=== PATIENT | male | born 1970 | race Caucasian/White ===

== ENCOUNTER → 2019-12-27 08:48 | Outpatient (BNVA) | payer OTHER, SELFPAY | PROVIDERS: Family Provider Emergency Medicine Emergency Medical Services; PCP Emergency Medicine Emergency Medical Services; Visit Provider Counselor Professional | DX: F43.12 Post-traumatic stress disorder, chronic (principal); F41.1 Generalized anxiety disorder; F33.2 Major depressive disorder, recurrent severe without psychotic features | CPT/HCPCS: 90834 ==

== ENCOUNTER 2020-01-05 06:54 | Day surgery (SDC) | payer OTHER, SELFPAY ==
[2020-01-04 09:57] VITALS: BMI 35.5
[2020-01-05 08:03] VITALS: BMI 35.5
[2020-01-05 08:09] VITALS: BP 159/99; PULSE 70; RESP 16; TEMP 36.3; O2SAT 95
[2020-01-05] MEDS: sodium chloride 0.9% 1,000 ML 30 ML (08:28)
--- NOTE | 2020-01-05 08:39 | W.PM.OPSUD ---
Surgery/Procedure H&P Update DATE OF PROCEDURE: January 05, 2020 DATE H&P PERFORMED: 12/30/19 H&P UPDATE INFORMATION: I have reviewed H&P completed within last 30 days, I have examined patient prior to procedure and No changes to prior documentation PREOP DIAGNOSIS: Dysphagia PRIMARY INDICATION FOR PROCEDURE: The same PLANNED PROCEDURE: Operation Date: 01/05/20 08:15 Proposed Procedures p EGD(Not Applicable) - Moe Torres MD
--- NOTE | 2020-01-05 08:45 | ANES.PREANE2 ---
Pre-Anesthetic Assessment Pre-Anesthetic Assessment: Height/Weight: Height 1.96 m Weight 136.078 kg Temp Pulse Resp BP Pulse Ox 97.4 F L 70 16 159/99 95 01/05/20 08:09 01/05/20 08:09 01/05/20 08:09 01/05/20 08:09 01/05/20 08:09 Preop Diagnosis: Dysphagia Proposed Procedure: Operation Date: 01/05/20 08:15 Proposed Procedures p EGD(Not Applicable) - Moe Torres MD Familial anesthetic complications: denies Was Beta Gonzalo taken within 24 hours: N/A Social: Social History: Tobacco (1/2 ppd) Exam: Pre-Anes Outpt Exam: alert, oriented x 3, clear to auscultation bilaterally and regular rate & rhythm Airway: Submandibular: WNL Cervical ROM: WNL MP: 2 Dentition: Full History/ROS: No significant history except as noted Pulmonary: Pulmonary: Sleep apnea (does not use cpap/bipap) CV/HEM: CV/HEM: HTN : : None reported Hepatic: Hepatic: None reported GI: GI: GERD Metabolic: Metabolic: Hyperlipidemia and Morbid obesity Musc/skel: Musc/skel: None reported Neuropsych: Neuropsych: Anxiety, Bipolar and Depression Comments: PTSD Anesthetic Plan: ASA status: 2 Anesthesia: Anesthesia Evaluation and MAC Risk of > 500 ml blood loss (7ml/kg in children): No PFSH Anesthesia PFSH: Social History Smoking and tobacco status: former smoker Quit status (tobacco): has quit using tobacco Second hand smoke exposure: No Alcohol intake: current Alcohol intake frequency: holidays/special occasions only Adopted: No Caregiver/support person: No Lives independently: No Household members: none Marital status: Current gender identity: Male Data Anesthesia Cardiac Studies: No Data to Display
[2020-01-05 09:01] VITALS: BP 136/90; PULSE 86; RESP 16; TEMP 36.2; O2SAT 99
[2020-01-05 09:10] VITALS: BP 125/88; PULSE 74; RESP 18; O2SAT 96
--- NOTE | 2020-01-05 09:20 | ANE.PACU2 ---
 Inpatient post-anesthesia follow up: Airway intact: Yes Vital signs: Temperature 97.2 F Pulse Rate 74 Respiratory Rate 18 Blood Pressure 125/88 Pulse Oximetry 96 Oxygen Delivery Me thod Room Air Oxygen Flow Rate 2 Fraction of Inspir ed Oxygen Hydration adequate: Yes Nausea and vomiting: No Mental status: Baseline
[2020-01-06 05:57] LABS: H. Pylori / CLO Test Negative
== END 2020-01-05 09:18 | disposition home or self-care (01) ==
PROVIDERS: Family Provider Emergency Medicine Emergency Medical Services; PCP Emergency Medicine Emergency Medical Services; Visit Provider Surgery
PROC: 0DJ08ZZ Inspection of Upper Intestinal Tract, Via Natural or Artificial Opening Endoscopic (ICD-10-PCS; CPT 43235; principal; 2020-01-05 08:15)
DX: R13.10 Dysphagia, unspecified (principal); K21.0 Gastro-esophageal reflux disease with esophagitis; K29.70 Gastritis, unspecified, without bleeding; K29.80 Duodenitis without bleeding; I10 Essential (primary) hypertension; F17.210 Nicotine dependence, cigarettes, uncomplicated; K21.9 Gastro-esophageal reflux disease without esophagitis; E78.5 Hyperlipidemia, unspecified; E66.01 Morbid (severe) obesity due to excess calories; Z68.35 Body mass index [BMI] 35.0-35.9, adult
CPT/HCPCS: 12345; 43239; 87077; J7030

== ENCOUNTER → 2020-01-17 10:51 | Outpatient (BNVA) | payer OTHER, SELFPAY | PROVIDERS: Family Provider Emergency Medicine Emergency Medical Services; PCP Emergency Medicine Emergency Medical Services; Visit Provider Counselor Professional | DX: F43.12 Post-traumatic stress disorder, chronic (principal); F41.1 Generalized anxiety disorder; F33.2 Major depressive disorder, recurrent severe without psychotic features | CPT/HCPCS: 90834 ==

== ENCOUNTER 2020-01-20 10:42 | Outpatient (CLI) | payer OTHER, SELFPAY ==
--- NOTE | 2020-01-20 10:52 | FL_ITS ---
WS: [id number] FL barium swallow modifd [id number] REASON FOR EXAM: Other dysphagia FLUOROSCOPY TIME: 3.2 minutes FINDINGS: Modified barium swallow for speech pathologist. Fluoroscopy was performed please see speech pathology diagnosis. There did appear to be some retention of barium in the vallecula area. FL/FL barium swallow modifd [id number] IMPRESSION: Modified barium swallow performed for speech pathology.
== END 2020-01-20 10:43 | disposition home or self-care (01) ==
PROVIDERS: Family Provider Emergency Medicine Emergency Medical Services; PCP Emergency Medicine Emergency Medical Services; Visit Provider Surgery
DX: R13.10 Dysphagia, unspecified (principal)
CPT/HCPCS: 74230; 92611

== ENCOUNTER → 2020-01-25 09:57 | Outpatient (BNVA) | payer OTHER, SELFPAY | PROVIDERS: Family Provider Emergency Medicine Emergency Medical Services; PCP Emergency Medicine Emergency Medical Services; Visit Provider Otolaryngology | DX: R13.10 Dysphagia, unspecified (principal); K21.9 Gastro-esophageal reflux disease without esophagitis; K21.0 Gastro-esophageal reflux disease with esophagitis; J34.2 Deviated nasal septum; F17.210 Nicotine dependence, cigarettes, uncomplicated | CPT/HCPCS: 31575; 99214 ==

== ENCOUNTER → 2020-01-31 08:05 | Outpatient (BNVA) | payer OTHER, SELFPAY | PROVIDERS: Family Provider Emergency Medicine Emergency Medical Services; PCP Emergency Medicine Emergency Medical Services; Visit Provider Counselor Professional | DX: F31.9 Bipolar disorder, unspecified (principal); F43.12 Post-traumatic stress disorder, chronic | CPT/HCPCS: 90834 ==

== ENCOUNTER → 2020-02-07 09:39 | Outpatient (BNVA) | payer OTHER, SELFPAY | PROVIDERS: Family Provider Emergency Medicine Emergency Medical Services; PCP Emergency Medicine Emergency Medical Services; Visit Provider Counselor Professional | DX: F31.9 Bipolar disorder, unspecified (principal); F43.12 Post-traumatic stress disorder, chronic | CPT/HCPCS: 90834 ==

== ENCOUNTER → 2020-02-21 07:48 | Outpatient (BNVA) | payer OTHER, SELFPAY | PROVIDERS: Family Provider Emergency Medicine Emergency Medical Services; PCP Emergency Medicine Emergency Medical Services; Visit Provider Counselor Professional | DX: F31.9 Bipolar disorder, unspecified (principal); F43.12 Post-traumatic stress disorder, chronic | CPT/HCPCS: 90834 ==

== ENCOUNTER → 2020-02-29 08:07 | Outpatient (BNVA) | payer OTHER, SELFPAY | PROVIDERS: Family Provider Emergency Medicine Emergency Medical Services; PCP Emergency Medicine Emergency Medical Services; Visit Provider Counselor Professional | DX: F31.9 Bipolar disorder, unspecified (principal); F43.12 Post-traumatic stress disorder, chronic | CPT/HCPCS: 90834 ==

== ENCOUNTER → 2020-03-07 08:04 | Outpatient (BNVA) | payer OTHER, SELFPAY | PROVIDERS: Family Provider Emergency Medicine Emergency Medical Services; PCP Emergency Medicine Emergency Medical Services; Visit Provider Counselor Professional | DX: F31.9 Bipolar disorder, unspecified (principal); F43.12 Post-traumatic stress disorder, chronic | CPT/HCPCS: 90834 ==

== ENCOUNTER → 2020-03-20 08:03 | Outpatient (BNVA) | payer OTHER, SELFPAY | PROVIDERS: Family Provider Emergency Medicine Emergency Medical Services; PCP Emergency Medicine Emergency Medical Services; Visit Provider Counselor Professional | DX: F31.9 Bipolar disorder, unspecified (principal); F43.12 Post-traumatic stress disorder, chronic | CPT/HCPCS: 90834 ==

== ENCOUNTER → 2020-03-28 08:06 | Outpatient (BNVA) | payer OTHER, SELFPAY | PROVIDERS: Family Provider Emergency Medicine Emergency Medical Services; PCP Emergency Medicine Emergency Medical Services; Visit Provider Counselor Professional | DX: F31.9 Bipolar disorder, unspecified (principal); F43.12 Post-traumatic stress disorder, chronic | CPT/HCPCS: 90832 ==

== ENCOUNTER → 2020-04-04 08:41 | Outpatient (BNVA) | payer OTHER, SELFPAY | PROVIDERS: Family Provider Emergency Medicine Emergency Medical Services; PCP Emergency Medicine Emergency Medical Services; Referring Provider Emergency Medicine Emergency Medical Services; Visit Provider Anesthesiology Pain Medicine | DX: G89.29 Other chronic pain (principal); M54.5 Low back pain; M54.9 Dorsalgia, unspecified; M54.2 Cervicalgia; R68.84 Jaw pain; F43.10 Post-traumatic stress disorder, unspecified; Z79.899 Other long term (current) drug therapy | CPT/HCPCS: 99203 ==

== ENCOUNTER → 2020-04-05 08:06 | Outpatient (BNVA) | payer OTHER, SELFPAY | PROVIDERS: Family Provider Emergency Medicine Emergency Medical Services; PCP Emergency Medicine Emergency Medical Services; Visit Provider Counselor Professional | DX: M54.9 Dorsalgia, unspecified (principal); R68.84 Jaw pain; F43.10 Post-traumatic stress disorder, unspecified | CPT/HCPCS: 64510; J1100; J2001; J3490 ==

== ENCOUNTER → 2020-04-11 07:58 | Outpatient (BNVA) | payer OTHER, SELFPAY | PROVIDERS: Family Provider Emergency Medicine Emergency Medical Services; PCP Emergency Medicine Emergency Medical Services; Visit Provider Counselor Professional | DX: F43.10 Post-traumatic stress disorder, unspecified (principal) | CPT/HCPCS: 90834 ==

== ENCOUNTER → 2020-04-19 12:30 | Outpatient (BNVA) | payer OTHER, SELFPAY | PROVIDERS: Family Provider Emergency Medicine Emergency Medical Services; PCP Emergency Medicine Emergency Medical Services; Visit Provider Anesthesiology Pain Medicine | DX: M54.2 Cervicalgia (principal); F43.10 Post-traumatic stress disorder, unspecified | CPT/HCPCS: 64510; J1100; J2001; J3490 ==

== ENCOUNTER → 2020-04-20 07:57 | Outpatient (BNVA) | payer OTHER, SELFPAY | PROVIDERS: Family Provider Emergency Medicine Emergency Medical Services; PCP Emergency Medicine Emergency Medical Services; Visit Provider Counselor Professional | DX: F43.10 Post-traumatic stress disorder, unspecified (principal) | CPT/HCPCS: 90834 ==

== ENCOUNTER → 2020-04-26 07:54 | Outpatient (BNVA) | payer OTHER, SELFPAY | PROVIDERS: Family Provider Emergency Medicine Emergency Medical Services; PCP Emergency Medicine Emergency Medical Services; Visit Provider Counselor Professional | DX: F43.10 Post-traumatic stress disorder, unspecified (principal) | CPT/HCPCS: 90834 ==

== ENCOUNTER → 2020-05-03 07:30 | Outpatient (BNVA) | payer OTHER, SELFPAY | PROVIDERS: Family Provider Emergency Medicine Emergency Medical Services; PCP Emergency Medicine Emergency Medical Services; Visit Provider Counselor Professional | DX: F43.10 Post-traumatic stress disorder, unspecified (principal); F31.12 Bipolar disorder, current episode manic without psychotic features, moderate | CPT/HCPCS: 90834 ==

== ENCOUNTER → 2020-05-09 08:09 | Outpatient (BNVA) | payer OTHER, SELFPAY | PROVIDERS: Family Provider Emergency Medicine Emergency Medical Services; PCP Emergency Medicine Emergency Medical Services; Visit Provider Counselor Professional | DX: F43.10 Post-traumatic stress disorder, unspecified (principal); F31.12 Bipolar disorder, current episode manic without psychotic features, moderate | CPT/HCPCS: 90834 ==

== ENCOUNTER → 2020-05-15 08:08 | Outpatient (BNVA) | payer OTHER, SELFPAY | PROVIDERS: Family Provider Emergency Medicine Emergency Medical Services; PCP Emergency Medicine Emergency Medical Services; Visit Provider Counselor Professional | DX: F43.10 Post-traumatic stress disorder, unspecified (principal); F31.12 Bipolar disorder, current episode manic without psychotic features, moderate | CPT/HCPCS: 90834 ==

== ENCOUNTER → 2020-05-29 07:56 | Outpatient (BNVA) | payer OTHER, MEDICARE, SELFPAY | PROVIDERS: Family Provider Emergency Medicine Emergency Medical Services; PCP Emergency Medicine Emergency Medical Services; Visit Provider Counselor Professional | DX: F43.10 Post-traumatic stress disorder, unspecified (principal); F31.12 Bipolar disorder, current episode manic without psychotic features, moderate | CPT/HCPCS: 90834 ==

== ENCOUNTER → 2020-06-01 14:31 | Outpatient (BNVA) | payer OTHER, SELFPAY | PROVIDERS: Family Provider Emergency Medicine Emergency Medical Services; PCP Emergency Medicine Emergency Medical Services; Visit Provider Psychiatry & Neurology Psychiatry | DX: F43.10 Post-traumatic stress disorder, unspecified (principal); F31.9 Bipolar disorder, unspecified | CPT/HCPCS: 99204 ==

== ENCOUNTER → 2020-06-06 08:38 | Outpatient (BNVA) | payer OTHER, SELFPAY | PROVIDERS: Family Provider Emergency Medicine Emergency Medical Services; PCP Emergency Medicine Emergency Medical Services; Visit Provider Counselor Professional | DX: F31.9 Bipolar disorder, unspecified (principal); F43.10 Post-traumatic stress disorder, unspecified | CPT/HCPCS: 90834 ==

== ENCOUNTER → 2020-06-20 08:10 | Outpatient (BNVA) | payer OTHER, SELFPAY | PROVIDERS: Family Provider Emergency Medicine Emergency Medical Services; PCP Emergency Medicine Emergency Medical Services; Visit Provider Counselor Professional | DX: F31.9 Bipolar disorder, unspecified (principal); F43.10 Post-traumatic stress disorder, unspecified | CPT/HCPCS: 90834 ==

== ENCOUNTER → 2020-06-26 08:01 | Outpatient (BNVA) | payer OTHER, SELFPAY | PROVIDERS: Family Provider Emergency Medicine Emergency Medical Services; PCP Emergency Medicine Emergency Medical Services; Visit Provider Psychiatry & Neurology Psychiatry | DX: F31.9 Bipolar disorder, unspecified (principal); F43.10 Post-traumatic stress disorder, unspecified | CPT/HCPCS: 99213 ==

== ENCOUNTER → 2020-06-27 08:19 | Outpatient (BNVA) | payer OTHER, SELFPAY | PROVIDERS: Family Provider Emergency Medicine Emergency Medical Services; PCP Emergency Medicine Emergency Medical Services; Visit Provider Counselor Professional | DX: F31.9 Bipolar disorder, unspecified (principal); F43.10 Post-traumatic stress disorder, unspecified | CPT/HCPCS: 90834 ==

== ENCOUNTER → 2020-07-12 08:29 | Outpatient (BNVA) | payer OTHER, SELFPAY | PROVIDERS: Family Provider Emergency Medicine Emergency Medical Services; PCP Emergency Medicine Emergency Medical Services; Visit Provider Counselor Professional | DX: F31.9 Bipolar disorder, unspecified (principal); F43.10 Post-traumatic stress disorder, unspecified | CPT/HCPCS: 90834 ==

== ENCOUNTER → 2020-07-31 08:19 | Outpatient (BNVA) | payer OTHER, SELFPAY | PROVIDERS: Family Provider Emergency Medicine Emergency Medical Services; PCP Emergency Medicine Emergency Medical Services; Visit Provider Counselor Professional | DX: F31.9 Bipolar disorder, unspecified (principal); F43.10 Post-traumatic stress disorder, unspecified | CPT/HCPCS: 90834 ==

== ENCOUNTER → 2020-08-08 08:17 | Outpatient (BNVA) | payer OTHER, SELFPAY | PROVIDERS: Family Provider Emergency Medicine Emergency Medical Services; PCP Emergency Medicine Emergency Medical Services; Visit Provider Psychiatry & Neurology Psychiatry | DX: F31.9 Bipolar disorder, unspecified (principal); F43.10 Post-traumatic stress disorder, unspecified | CPT/HCPCS: 99213 ==

== ENCOUNTER → 2020-08-14 08:33 | Outpatient (BNVA) | payer OTHER, SELFPAY | PROVIDERS: Family Provider Emergency Medicine Emergency Medical Services; PCP Emergency Medicine Emergency Medical Services; Visit Provider Counselor Professional | DX: F31.9 Bipolar disorder, unspecified (principal); F43.12 Post-traumatic stress disorder, chronic | CPT/HCPCS: 90834 ==

== ENCOUNTER → 2020-08-29 07:50 | Outpatient (BNVA) | payer OTHER, SELFPAY | PROVIDERS: Family Provider Emergency Medicine Emergency Medical Services; PCP Emergency Medicine Emergency Medical Services; Visit Provider Counselor Professional | DX: F31.9 Bipolar disorder, unspecified (principal); F43.12 Post-traumatic stress disorder, chronic | CPT/HCPCS: 90834 ==

== ENCOUNTER → 2020-09-05 08:04 | Outpatient (BNVA) | payer OTHER, SELFPAY | PROVIDERS: Family Provider Emergency Medicine Emergency Medical Services; PCP Emergency Medicine Emergency Medical Services; Visit Provider Counselor Professional | DX: F31.9 Bipolar disorder, unspecified (principal); F43.12 Post-traumatic stress disorder, chronic | CPT/HCPCS: 90834 ==

== ENCOUNTER → 2020-09-19 08:12 | Outpatient (BNVA) | payer OTHER, SELFPAY | PROVIDERS: Family Provider Emergency Medicine Emergency Medical Services; PCP Emergency Medicine Emergency Medical Services; Visit Provider Counselor Professional | DX: F31.9 Bipolar disorder, unspecified (principal); F43.12 Post-traumatic stress disorder, chronic | CPT/HCPCS: 90834 ==

== ENCOUNTER → 2020-10-02 08:13 | Outpatient (BNVA) | payer OTHER, SELFPAY | PROVIDERS: Family Provider Emergency Medicine Emergency Medical Services; PCP Emergency Medicine Emergency Medical Services; Visit Provider Counselor Professional | DX: F31.9 Bipolar disorder, unspecified (principal); F41.1 Generalized anxiety disorder; F43.12 Post-traumatic stress disorder, chronic | CPT/HCPCS: 90834 ==

== ENCOUNTER 2020-10-10 08:56 | Outpatient (CLI) | payer OTHER, SELFPAY ==
--- NOTE | 2020-10-10 09:06 | CT_ITS ---
WS: [id number] CT CHEST TECHNIQUE: Contrast enhanced CT of the chest with coronal and sagittal reformatted images. CLINICAL INFORMATION: POSSIBLE MASS VERSES PULMONARY NODULE COMPARISON: None. DLP: 1087.[address] scans at [facility] use at least one of these dose optimization techniques: automat ed exposure control; mA and/or kV adjustment per patient size (includes targeted exams where dose is matched to clinical indication); or iterative reconstruction. FINDINGS: Mild chronic emphysematous changes. No acute pulmonary infiltrates. No focal consolidation or pleural fluid. Irregular subpleural nodule left lower lobe measuring 1.5 x 1.7 x 1.0 CM. Recommend further e valuation with PET/CT. A few tiny adjacent tiny pulmonary and subpleural nodules in the left lower lo be. Additional noncalcified 5.2 mm pulmonary nodule in the super segment of the right lower lobe adjacent to the fissure posteriorly. Normal caliber thoracic aorta. No mediastinal or hilar lymphadenopathy. No axillary lymphadenopathy. Adrenal glands are normal. Diffuse fatty infiltration liver. Low-attenuation lesion in the dome the l iver likely hepatic cyst measuring 1.[address]/CT chest w con* [id number] IMPRESSION: 1. Irregular subpleural pulmonary nodule in the left lower lobe measuring1.5 x 1.7 x 1.0 CM. Neoplasm is not excluded. Recommend further evaluation with PET/ CT 2. A few adjacent tiny satellite nodules in the left lower lobe. 3. Noncalcified 5 mm nodule in the super segment right lower lobe adjacent to the fissure. Recommend 6 month follow-up. 4. No mediastinal or hilar lymphadenopathy. 5. Diffuse fatty infiltration of the liver with low-attenuation lesion in the dome likely hepatic cyst measuring 1.7 CM.
[2020-10-10] MEDS: iohexol 300 mg/mL 100 mL Btl IV (09:30)
== END 2020-10-10 08:57 | disposition home or self-care (01) ==
LOC: RADWPI 09:01
PROVIDERS: PCP Emergency Medicine Emergency Medical Services; Visit Provider Emergency Medicine Emergency Medical Services
DX: R91.8 Other nonspecific abnormal finding of lung field (principal); R91.1 Solitary pulmonary nodule; K76.0 Fatty (change of) liver, not elsewhere classified
CPT/HCPCS: 71260; Q9967

== ENCOUNTER → 2020-10-16 07:58 | Outpatient (BNVA) | payer OTHER, SELFPAY | PROVIDERS: PCP Emergency Medicine Emergency Medical Services; Visit Provider Counselor Professional | DX: F31.9 Bipolar disorder, unspecified (principal); F43.12 Post-traumatic stress disorder, chronic | CPT/HCPCS: 90834 ==

== ENCOUNTER → 2020-10-31 07:59 | Outpatient (BNVA) | payer OTHER, SELFPAY | PROVIDERS: PCP Emergency Medicine Emergency Medical Services; Visit Provider Counselor Professional | DX: F43.12 Post-traumatic stress disorder, chronic (principal); F31.9 Bipolar disorder, unspecified | CPT/HCPCS: 90834 ==

== ENCOUNTER → 2020-11-13 08:09 | Outpatient (BNVA) | payer OTHER, SELFPAY | PROVIDERS: PCP Emergency Medicine Emergency Medical Services; Visit Provider Counselor Professional | DX: F43.12 Post-traumatic stress disorder, chronic (principal); F31.9 Bipolar disorder, unspecified; F41.1 Generalized anxiety disorder; F33.2 Major depressive disorder, recurrent severe without psychotic features | CPT/HCPCS: 90834 ==

== ENCOUNTER 2020-11-27 08:26 | Outpatient (CLI) | payer OTHER, SELFPAY ==
[2020-11-27 09:40] VITALS: BMI 35.5
--- NOTE | 2020-11-27 09:41 | NMCV_ITS ---
NM cuong perf SPECT r/s* [id number] HarryAdriano eatonick Age: 50 Gender: M : 1970 Exam Date: 11/27/2020 11:04 Ordering Phys: Deonna Medina MD ([email or web address]) Technologist: KAE Keys Exam Location: [facility] Indications: CHEST PAIN STRESS TEST Please see separate stress test report in [facility] for full findings IMAGE PROTOCOL Rest/Stress 1 Lexiscan Day Radiopharmaceutical Dose (mCi) Administration Site Administered by Rest: Tc-99m 10.6 IV KAE Simons Sestamibi Stress:Tc-99m 33.0 IV KAE Simons Sestamibi Rest: 27-Nov-2020 60 Discovery 630 Stress: 27-Nov-2020 30 Discovery 630 0.4mg Lexiscan. Images obtained in supine and prone position. SPECT RESULTS Technical Quality: Excellent Raw Data Analysis: Normal Image Corrections: No attenuation or motion correction applied Summed Stress Score: 0 Summed Rest Score: 0 Summed Difference Score: 0 PERFUSION FINDINGS A small area of decreased tracer uptake was noted in the mid anterior wall region, with some reversibility. Small area of decreased tracer uptake was noted in the inferior wall region, with no significant reversibility FUNCTIONAL RESULTS (calculated via Gated SPECT) Stress Image LV EF (%): 48 Stress EDV (mL):178 TID: 0.95 Stress ESV (mL):92 FUNCTIONAL FINDINGS: Segmental wall motion analysis revealed mild diffuse hypokinesia of the left ventricle. IMPRESSIONS 1. Myocardial perfusion imaging revealing a small area of reversible defect in the anterior wall region, suggestive of ischemia in the distribution of the left anterior descending artery. Small area of persistent decreased tracer uptake in the inferior wall region, suggestive of myocardial scarring versus attenuation artifact 2. Diminished LV ejection fraction of 48%. 3. Mild diffuse hypokinesia of the left ventricle 4. Mildly dilated LV cavity with an end-systolic volume of 92 mL No similar previous studies are available for comparison Dr Deonna Medina MD FACC (Electronically Signed) Final Date: 27 November 2020 18:17 S
--- NOTE | 2020-11-27 09:41 | ECG_ITS ---
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 Interpretive Statements NAME OF STUDY: LEXISCAN SESTAMIBI STRESS TEST INDICATION: Chest PainRESULTS TO GENARO DELGADO PROCEDURE: At the baseline, the EKG revealed normal sinus rhythm with some nonspecific T wave changes.. The baseline blood pressure was 153/100 mm Hg with a heart rate of 74 beats/min. Lexiscan was infused over a period of 20 seconds. A total of 0.4 milligrams of Lexiscan was infused. The stress phase was continued for a total of 5 minutes. Heart rate at the end of the stress phase was 79 with a blood pressure 154/96. The EKG at the peak infusion revealed no significant changes. Sestamibi was injected 20 seconds after the Lexiscan infusion. Blood pressure at the end of the recovery phase was 163/93 with a heart rate of 80 per minute. CONCLUSION: 1. No significant EKG changes with the LexiScan infusion 2. No LexiScan induced chest pain or cardiac arrhythmia 3. Normal blood pressure and heart rate response 4. Sestamibi/sestamibi perfusion scan pending; see separate report. Electronically Signed On 12-01-2020 12:18:07 SOLE ASSESSOR by Deonna Medina M.D. [id number]
--- NOTE | 2020-11-27 11:34 | SUR.PREOP ---
Patient reports no pain or discomfort prior to the start of the procedure.
[2020-11-27] MEDS: regadenoson 0.4 Mg/5 ml Syringe IVP (11:35)
[2020-11-27 12:10] VITALS: BP 156/68; PULSE 72
== END 2020-11-27 08:27 | disposition home or self-care (01) ==
LOC: RAD 08:31 → CDL 09:39
PROVIDERS: PCP Emergency Medicine Emergency Medical Services; Visit Provider Internal Medicine Cardiovascular Disease
DX: R07.89 Other chest pain (principal)
CPT/HCPCS: 78452; 93017; 93306; A9500; J2785

== ENCOUNTER → 2020-12-05 08:45 | Outpatient (BNVA) | payer OTHER, SELFPAY | PROVIDERS: PCP Emergency Medicine Emergency Medical Services; Visit Provider Counselor Professional | DX: F43.12 Post-traumatic stress disorder, chronic (principal); F31.9 Bipolar disorder, unspecified; F41.1 Generalized anxiety disorder; F33.2 Major depressive disorder, recurrent severe without psychotic features | CPT/HCPCS: 90834 ==

== ENCOUNTER → 2020-12-08 10:25 | Outpatient (BNVA) | payer OTHER, SELFPAY | PROVIDERS: PCP Emergency Medicine Emergency Medical Services; Visit Provider Thoracic Surgery (Cardiothoracic Vascular Surgery) | DX: R91.1 Solitary pulmonary nodule (principal) | CPT/HCPCS: 87635 ==

== ENCOUNTER 2020-12-13 08:06 | Outpatient (CLI) | payer OTHER, SELFPAY ==
--- NOTE | 2020-12-13 09:47 | PFTS_ITS ---
Date of Study:12/13/20 Date of Dictation: MECHANICS: Forced vital capacity (FVC) is normal. Forced expiratory volume in one second (FEV1) is normal. FEV1/FVC is normal. FLOW VOLUME LOOP: Normal. LUNG VOLUMES: Total lung capacity (TLC) is normal. Residual volume (RV) is reduced. DIFFUSING CAPACITY FOR CARBON MONOXIDE: Normal. INTERPRETATION: The prebronchodilator spirometry is normal. Lung volumes showed mild reduction in the residual volume. Gas exchange (DLCO) is normal. MTDD
== END 2020-12-13 08:07 | disposition home or self-care (01) ==
LOC: RT 08:09
PROVIDERS: PCP Emergency Medicine Emergency Medical Services; Visit Provider Thoracic Surgery (Cardiothoracic Vascular Surgery)
DX: R91.8 Other nonspecific abnormal finding of lung field (principal)
CPT/HCPCS: 94010; 94726; 94729

== ENCOUNTER 2020-12-14 18:54 | Emergency (ER) | payer OTHER, MEDICARE, SELFPAY ==
[2020-12-14] VITALS (8 sets, daily range): BP systolic 143–174; BP diastolic 92–106; PULSE 71–81; RESP 16–20; TEMP 36.7; O2SAT 94–98; BMI 35.5
--- NOTE | 2020-12-14 18:55 | XR_ITS ---
WS: [id number] Portable AP upright chest, 12/14/2020 Clinical Data: cp Comparison: None. Findings: No nodules, masses or effusions are seen. The heart is normal. The pulmonary vascularity is not increased. No pneumonia or pneumothorax is seen. XR/XR chest 1V portable [id number] Impression: Negative chest.
--- NOTE | 2020-12-14 18:55 | ECG_ITS ---
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 Measurements Intervals [place] Rate: 82 P: 53 MI: 144 QRS: -27 QRSD: 104 T: 61 QT: 365 QTc: 427 Interpretive Statements SINUS RHYTHM BORDERLINE LEFT AXIS DEVIATION [QRS AXIS < -20] S1-S2-S3 PATTERN, CONSISTENT WITH PULMONARY DISEASE, RVH, OR NORMAL VARIANT INCOMPLETE RIGHT BUNDLE BRANCH BLOCK [90+ ms QRS DURATION, TERMINAL R IN V1/V2, 40+ ms S IN I/aVL/V4/V5/V6] LEFT VENTRICULAR HYPERTROPHY AND ST-T CHANGE [VOLTAGE CRITERIA PLUS ST/T ABNORMALITY] No previous ECG available for comparison Electronically Signed On 12-16-2020 19:13:12 CUSTOMER SALES SPECIALIST by Deonna Medina M.D. [email or web address] [facility].[place] Illumination/store/NU/[id number] f
--- NOTE | 2020-12-14 20:23 | ED_ITS ---
HPI - Chest Pain General: Chief Complaint: Chest Pain Stated Complaint: cp/dizziness Time Seen by Provider: 12/14/20 20:19 Source: patient Mode of arrival: ambulatory Limitations: no limitations History of Present Illness: HPI narrative: 1-year-old male states roughly 2 to 3 hours ago he got very angry started having a severe chest pain. He states it was in the middle of his chest since resolved. He states it lasted for roughly an hour. He did have a stress test that showed some abnormalities back in November. He is supposed be getting scheduled for a cardiac cath. He denies any shortness of breath. He had some nausea with the pain. Denies any radiation. MD complaint: chest pain Associated symptoms: Deny abdominal pain, dyspnea, fever(s), nausea or vomiting Review of Systems Const: Denies: fever(s), chills, body aches or change in appetite Eyes: Denies: blurry vision or eye discomfort ENMT: Denies: throat pain or dental pain Card: Reports: chest pain Resp: Denies: dyspnea GI: Denies: abdominal pain, nausea, vomiting or diarrhea : Denies: dysuria Musc: Denies: neck pain or back pain Skin/Breast: Denies: rash Neuro: Denies: headache(s) Psych: Denies: depression [place]/Lymph: Denies: easy bruising All/Imm: Denies: urticaria PFSH ED PFSH: Medical History Abnormal EKG Atypical chest pain Benign essential HTN Bipolar disorder Deviated septum Dyslipidemia Dysphagia GERD and gastritis and duodenitis.Patient will be started on medical management, no evidence of esophageal strictures or masses GERD (gastroesophageal reflux disease) Hypertension Laryngopharyngeal reflux PTSD (post-traumatic stress disorder) SOB (shortness of breath) Surgical History History of colonoscopy with polypectomy (~08/2019) Family History Father , had sudden cardiac at the age of 57 No problems noted. Brother No problems noted. Denies family history of Diabetes CAD (coronary artery disease) Clotting disorder Dementia Chronic kidney disease (CKD) Suicide Anesthesia complication Bleeding disorder Lung disease Cancer Stroke Social History Smoking and tobacco status: former smoker Quit status (tobacco): has quit using tobacco Smoking risk assessment/counseling performed?: No Alcohol intake: former Lives independently: Yes Household members: none Marital status: History of recent travel: No Current gender identity: Male Physical Exam Const: COMMON NORMALS: no acute distress, patient oriented x3 and healthy appearing HENMT: COMMON NORMALS: normocephalic and atraumatic HEAD & SCALP: normocephalic and atraumatic Eye: COMMON NORMALS: Equal, round and reactive pupils present and EOMs intact bilaterally PUPIL: Yes Equal, round and reactive pupils present Neck/C-Spine: COMMON NORMALS: full ROM and supple Chest: COMMONS NORMALS: normal inspection of the chest and normal palpation of entire chest wall Resp: COMMON NORMALS: normal respiratory effort, No retractions, No use of accessory muscles and clear to auscultation bilaterally AUSCULTATION: clear to auscultation bilaterally Cardio: COMMON NORMALS: regular rate, regular rhythm and No murmurs present (Cardio) RATE: regular rate RHYTHM: regular rhythm GI: COMMON NORMALS: Normal to inspection, nondistended, normoactive bowel sounds present, Soft to palpation, non-tender and no masses PALPATION: Yes Soft to palpation Extremity: COMMON NORMALS: normal to inspection and full ROM Neuro: COMMON NORMALS: patient oriented x3, moves all extremities and no focal motor deficits Psych: COMMON NORMALS: mental status grossly normal, Normal thought process present and cooperative THOUGHT PROCESS: Normal thought process present Skin: COMMON NORMALS: no rashes or lesions noted and no wounds GENERAL SKIN EXAM: no rashes or lesions noted Course Vital Signs: Vital signs: Vital Signs Temperature 98.0 F 12/14/20 19:04 Pulse Rate 72 12/14/20 21:30 Respiratory Rate 18 12/14/20 21:30 Blood Pressure 164/104 12/14/20 21:30 Pulse Oximetry 95 12/14/20 21:30 MDM - Chest Pain MDM Narrative: Medical decision making narrative: Patient presents here with chest pain that is since resolved. His initial repeat troponins here are negative. He did have a recent stress test that was abnormal and I offered him admission. He states that he is getting a cath scheduled with Dr. Adam leal do this outpatient. His second troponin was normal and will discharge by informed if he has any chest pain in the meantime he is to return. He understands and agrees to the plan. Lab Data: Labs: Lab Results 12/14/20 12/14/20 12/14/20 Range/Units 20:30 20:30 20:30 WBC 8.5 (4.0-10.0) 10^3/ uL RBC 4.58 (4.1-5.3) 10^6/u L Hgb 14.2 (11.7-16.6) g/dL Hct 41.7 L (42.0-52.0) % MCV 91.0 (80-94) fL MCH 31.0 (28.0-34.0) pg MCHC 34.1 (30.0-36.0) g/dL RDW 12.0 L (12.1-15.1) % Plt Count 280 (130-400) 10^3/c mm MPV 10.2 (7.4-10.4) fL Neut % (Auto) 49.1 % Lymph % (Auto) 38.8 % [place] % (Auto) 8.0 % Eos % (Auto) 2.7 % Baso % (Auto) 1.2 % Neut # (Auto) 4.19 (1.8-7.7) 10^3/u L Lymph # (Auto) 3.3 (0.8-4.8) 10^3/u L [place] # (Auto) 0.7 (0.2-0.9) 10^3/u L Eos # (Auto) 0.2 (0.0-0.8) 10^3/u L Baso # (Auto) 0.1 (0.0-0.1) 10^3/u L Nucleated RBC % (a uto) 0 % Nucleated RBCs # 0.0 /100WBC Sodium 139 (136-145) mmol/L Potassium 3.5 (3.5-5.1) mmol/L Chloride 99 (98-107) mmol/L Carbon Dioxide 28 (22-29) mmol/L Anion Gap 15.5 (5-19) BUN 24 H (6-20) mg/dL Creatinine 1.1 (0.7-1.2) mg/dL GFR Calculation 70.3 L (90-130) mL/min Glucose 103 (65-115) mg/dL Calculated Osmolal ity 292 (285-295) mOsm/k g Calcium 9.5 (8.5-10.5) mg/dL Total Bilirubin 0.2 (0.15-1.2) mg/dL AST 25 (0-40) U/L ALT 26 (0-41) U/L Alkaline Phosphata se 66 (40-130) IU/L Troponin T Baselin e 6 (0-15) ng/L Troponin T 120 Min [place] (0-15) ng/L Delta Troponin T (0-10) ABS# Total Protein 7.7 (6.6-8.7) g/dL Albumin 4.9 (3.5-5.2) g/dL Globulin 2.8 (1.3-4.6) g/dL 12/14/20 Range/Units 22:19 WBC (4.0-10.0) 10^3/ uL RBC (4.1-5.3) 10^6/u L Hgb (11.7-16.6) g/dL Hct (42.0-52.0) % MCV (80-94) fL MCH (28.0-34.0) pg MCHC (30.0-36.0) g/dL RDW (12.1-15.1) % Plt Count (130-400) 10^3/c mm MPV (7.4-10.4) fL Neut % (Auto) % Lymph % (Auto) % [place] % (Auto) % Eos % (Auto) % Baso % (Auto) % Neut # (Auto) (1.8-7.7) 10^3/u L Lymph # (Auto) (0.8-4.8) 10^3/u L [place] # (Auto) (0.2-0.9) 10^3/u L Eos # (Auto) (0.0-0.8) 10^3/u L Baso # (Auto) (0.0-0.1) 10^3/u L Nucleated RBC % (a uto) % Nucleated RBCs # /100WBC Sodium (136-145) mmol/L Potassium (3.5-5.1) mmol/L Chloride (98-107) mmol/L Carbon Dioxide (22-29) mmol/L Anion Gap (5-19) BUN (6-20) mg/dL Creatinine (0.7-1.2) mg/dL GFR Calculation (90-130) mL/min Glucose (65-115) mg/dL Calculated Osmolal ity (285-295) mOsm/k g Calcium (8.5-10.5) mg/dL Total Bilirubin (0.15-1.2) mg/dL AST (0-40) U/L ALT (0-41) U/L Alkaline Phosphata se (40-130) IU/L Troponin T Baselin e (0-15) ng/L Troponin T 120 Min [place] 6.00 (0-15) ng/L Delta Troponin T 0 (0-10) ABS# Total Protein (6.6-8.7) g/dL Albumin (3.5-5.2) g/dL Globulin (1.3-4.6) g/dL Imaging Data^: CXR: Attestation: I personally reviewed and interpreted this imaging study as follows: My impression: no acute abnormality EKG Data^: EKG 1: Attestation: I personally reviewed and interpreted this EKG as follows: EKG interpretation date: 12/14/20 EKG interpretation time: 19:03 Interpretation: nsr hr [address] and t wave abnormalities qrs 104 qtc 403 lvh EKG 2: Attestation: I personally reviewed and interpreted this EKG as follows: EKG interpretation date: 12/14/20 EKG interpretation time: 21:00 Interpretation: nsr hr [address] or t wave abnormalities qrs 108 qtc 414 Discharge Plan Discharge Patient Disposition: Home Clinical Impression: Chest pain Qualifiers: Chest pain type: unspecified Qualified Code(s): R07.9 - Chest pain, unspecified Condition: Stable Prescriptions: No Action simvastatin 20 mg tablet 20 mg PO DAILY RF: 0 cholecalciferol (vitamin D3) 4,000 unit capsule 4,000 unit PO DAILY RF: 0 fluoxetine [Prozac] 20 mg capsule 60 mg PO DAILY Qty: 90 RF: 2 quetiapine [Seroquel] 400 mg tablet 800 mg PO .HS Qty: 60 RF: 2 amlodipine 5 mg tablet 5 mg PO DAILY 30 Days Qty: 30 RF: 5 carvedilol 6.25 mg tablet 6.25 mg PO BID 30 Days Qty: 60 RF: 5 hydrochlorothiazide 25 mg Tablet 25 mg PO DAILY RF: 0 Protonix 40 mg tablet,delayed release (DR/EC) 40 mg PO DAILY 30 Days Qty: 30 RF: 2 Discharge Orders: Discharge ED (Routine); Ordered 12/14/20 Ordered By: Rosa Isela Lobo Referrals: Bob Bryan DO [Primary Care Provider] - Discharge Diet: Advance as tolerated Discharge Activity: Resume usual activity Patient Instructions: Chest Pain (ED) Coding Level of Care Code ED Knifer Up for Chg Fwd Exam Comprehensive
[2020-12-14 20:39] LABS: Basophils # 0.1 10^3/uL (0.0-0.1); Basophils % 1.2 %; Eosinophils # 0.2 10^3/uL (0.0-0.8); Eosinophils % 2.7 %; Hematocrit 41.7 % (42.0-52.0); Hemoglobin 14.2 g/dL (11.7-16.6); Lymphocytes # 3.3 10^3/uL (0.8-4.8); Lymphocytes % 38.8 %; Mean Corpuscular HGB Conc 34.1 g/dL (30.0-36.0); Mean Platelet Volume 10.2 fL (7.4-10.4); Monocytes # 0.7 10^3/uL (0.2-0.9); Neutrophils # 4.19 10^3/uL (1.8-7.7); Neutrophils % 49.1 %; Nucleated Red Blood Cells % 0 %; Platelet Count 280 10^3/cmm (130-400); Red Blood Count 4.58 10^6/uL (4.1-5.3); White Blood Count 8.5 10^3/uL (4.0-10.0)
--- NOTE | 2020-12-14 20:55 | ECG_ITS ---
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 Measurements Intervals [place] Rate: 69 P: 73 NM: 181 QRS: -14 QRSD: 108 T: 68 QT: 395 QTc: 425 Interpretive Statements SINUS RHYTHM NONSPECIFIC ST & T-WAVE ABNORMALITY No previous ECG available for comparison Electronically Signed On 12-16-2020 19:27:51 HASSOCK MAKER by Deonna Medina M.D. [email or web address]/store/[id number]
[2020-12-14 20:59] LABS: Alanine Aminotransferase 26 U/L (0-41); Albumin Level 4.9 g/dL (3.5-5.2); Alkaline Phosphatase 66 IU/L (40-130); Anion Gap 15.5 (5-19); Aspartate Amino Transferase 25 U/L (0-40); Blood Urea Nitrogen 24 mg/dL (6-20); Calcium 9.5 mg/dL (8.5-10.5); Carbon Dioxide 28 mmol/L (22-29); Chloride 99 mmol/L (98-107); Globulin 2.8 g/dL (1.3-4.6); Glomerular Filtration Rate 70.3 mL/min (90-130); Glucose 103 mg/dL (65-115); Osmolality Calculated 292 mOsm/kg (285-295); Potassium 3.5 mmol/L (3.5-5.1); Sodium 139 mmol/L (136-145); Total Bilirubin 0.2 mg/dL (0.15-1.2); Total Protein 7.7 g/dL (6.6-8.7)
[2020-12-14 21:00] LABS: Troponin(5th) Baseline 6 ng/L (0-15)
--- NOTE | 2020-12-14 21:11 | PC.NURSE ---
EKG done at 2100 and shown to ER doctor.
[2020-12-14 22:47] LABS: Troponin 5 2HR Delta 0 ABS# (0-10)
== END 2020-12-14 23:18 | disposition home or self-care (01) ==
PROVIDERS: Emergency Provider Emergency Medicine; PCP Emergency Medicine Emergency Medical Services
DX: R07.9 Chest pain, unspecified (principal); I10 Essential (primary) hypertension; R94.31 Abnormal electrocardiogram [ECG] [EKG]; E78.5 Hyperlipidemia, unspecified
CPT/HCPCS: 71045; 80053; 84484; 85025; 93005; 99283

== ENCOUNTER → 2020-12-21 07:51 | Outpatient (BNVA) | payer OTHER, SELFPAY | PROVIDERS: PCP Emergency Medicine Emergency Medical Services; Visit Provider Counselor Professional | DX: F31.9 Bipolar disorder, unspecified (principal); F43.12 Post-traumatic stress disorder, chronic; F41.1 Generalized anxiety disorder; F33.2 Major depressive disorder, recurrent severe without psychotic features | CPT/HCPCS: 90834 ==

== ENCOUNTER → 2020-12-25 11:51 | Outpatient (BNVA) | payer OTHER, SELFPAY | PROVIDERS: PCP Emergency Medicine Emergency Medical Services; Visit Provider Internal Medicine Cardiovascular Disease | DX: Z03.818 Encounter for observation for suspected exposure to other biological agents ruled out (principal) | CPT/HCPCS: 87635 ==

== ENCOUNTER 2020-12-29 17:13 | Observation (INO) | payer OTHER, SELFPAY ==
[2020-12-29] VITALS (15 sets, daily range): BP systolic 132–163; BP diastolic 87–107; PULSE 72–89; RESP 10–24; TEMP 37.1; O2SAT 91–97; BMI 36.0
--- NOTE | 2020-12-29 13:02 | XACV_ITS ---
Ht: 196 cm Wt: 138 kg BSA: 2.78 m2 Gender: Male : 1970 Any Known Allergies: Other Exam Priority: Routine Procedure(s): Procedure Description: Diagnostic procedure Procedure Description: Left Heart Catheterization Procedure Description: Left ventriculography Procedure Description: Coronary Angiography Diagnostic Cath Status: Elective Diagnostic Findings * Coronary angiography shows right dominance. * The left main is a medium to large caliber vessel with 20% tapering narrowing distally. * The left anterior descending artery is a medium caliber vessel which appears to wrap around the LV apex minimally. The proximal LAD was found to have around 40% eccentric narrowing. Right after the first diagonal branch, the LAD was found to have around 40% narrowing. Distal LAD was found to have minimal intimal irregularities. * The circumflex artery is a medium caliber vessel with no significant stenotic lesions. * The right coronary artery is a medium to large caliber dominant vessel with no significant stenotic lesions. Conclusions 1. This is a 50-year-old white male with history of hypertension, dyslipidemia and a strong family history for premature atherosclerotic heart disease present with complaints of chest pain and shortness of breath. He had a myocardial perfusion imaging which revealed a small area of reversible defect in the anterior wall region, suggestive of ischemia in the distribution of the left anterior descending artery. In view of the patient's ongoing symptoms and multiple risk factors, in order to further evaluate his coronary status, a cardiac catheterization was recommended. Patient underwent left heart catheterization with left and right coronary angiogram and LV angiogram today. The findings are as follows.. 2. Left main artery and the left anterior descending artery were found to have mild disease, lesions ranging anywhere from 20 to 40%. No significant disease in the right coronary artery and the circumflex artery. Normal LV ejection fraction of 55%. LVEDP of 9 mmHg. Diagnostic RX Recommendation: medical therapy and/or counseling LV EDP: 9 mmHg Ventriculography Ejection Fraction: 55.0 % Left Ventriculography Findings: * LV gram was performed in the WISE position. The LV cavity appears to be upper limit of normal size. LVEDP was 9 mmHg. There was no significant mitral valve prolapse or mitral regurgitation. No filling defects were noted.. Pressures Phase:Rest AO : 139 / 101 ( 118 ) @ 9:47:00 AM 176 / 35 ( 92 ) @ 9:57:00 AM 144 / 95 ( 114 ) @ 9:57:00 AM LV : 171 / 4 / @ 9:56:00 AM 173 / 7 / @ 9:57:00 AM Clinical Evaluation EBL: 5mL-10mL Procedural Details Procedure Consent Obtained. Pre-Procedure Time Out. Identified patient by full name and date of as verbalized by the patient/guarantor. Does the consent match the physician's order: Yes. Accurate & Complete Informed Consent: Yes. Inpatient/Outpatient History & Physical on Chart: Yes. If H&P is completed, is and addenduem needed: No; If yes, is the addendum complete: N/A. Visualize and Verify Site with Patient/Guarantor: N/A. Relevant Radiology Images available: N/A. Pre-op teaching completed and patient verbalized understanding. The risks, benefits, and alternatives of sedation and/or procedure were discussed by physician. The patient agrees to continue. Procedure started. Physician notified. [facility] Clinical Fraility Score: 3: Managing Well. Machine Tack Puller Indications: Worsening Angina. Chest Pain Symptom Assessment: Atypical Angina. Cardiovascular Instability: no. Correct patient, site and procedure confirmed by cath team. PERRLA. 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 Lungs clear x 5 lobes. IV Site on Arrival: 20 gauge in the left anticubital. IV Fluids: 0.9% NaCl at KVO. 0. mL infused prior to photographic laboratory supervisor. Pre Procedural Pulses: bilateral radial was 3+. Oxygen started at 2liters/min via nasal canula. bilateral groins was prepped with chloroprep then draped in the usual sterile fashion. right radial was prepped with chloroprep then draped in the usual sterile fashion. Baseline sample Acquired. HR: 76 BPM. Equipment: 6F - Radial. Cardiac Cath Pack. ACIST Manifold Kit Model BT 2000. Heparinized Saline (2 units/mL), 1000 mL bag. Physician arrived. Physician scrubbed in. Immediate Pre-Procedure Time Out. Correct Patient: Yes; Correct Procedure: Yes; Correct Site: Yes; Correct Patient Position: Yes; Correct Supplies: Yes; Dried Flammable Prep: Yes; Blood Products Available: N/A;. Lidocaine 1% infiltrated to the right radial. Arterial access obtained. A 5 samoan Jono catheter in over wire. Multiple views taken of left coronary artery. Catheter redirected to the RCA. Multiple views taken of right coronary artery. Catheter removed over the exchange wire. A 5 samoan Angled Pig catheter in over wire. Hemodynamic system difficulty. EDP Sample taken: LV 171/4,32; HR: 92 BPM; SpO2: 96%. EDP [address] Medina. LV gram performed in WISE @ 10 mL/second for a total of 30 mL. EDP Sample taken: LV 173/7,36; HR: 94 BPM; SpO2: 96%. Pullback taken: LV Off; AO Off; Mean: , Peak to Peak: , SEP: ; HR: 96 BPM; SpO2: 96%. Catheter out. Second EDP [address] Medina. Physician scrubbed out. A TR Band was successful obtaining hemostatsis at the Right Radial artery insertion site. TR band placed. Hemostasis obtained. Post Procedure: Pulses reassessed and unchanged. PERRLA. 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 No VTE prophylaxis required. Medication's Wasted: Lidocaine 1% = 18 mL. Medication's Wasted: Heparin = 1000 units. Medication's Wasted: Nitro = 49.8 mg. Total IV fluids: 50 mL. Contrast type used: Omnipaque 300 mgI/mL, 500 mL bottle. Post-op diagnosis: mild CAD. Complications: none. Estimated blood loss: 5mL-10mL. Procedure completed. Patient transferred by wheelchair to ICU. Vital chart was stopped. Access Site Site: Right Radial artery Sheath Size: 6 Fr Hemostasis Method: TR Band Hemostasis Success: Successful Procedure Medications Start: 3:31 PM Stop: 3:31 PM Medication: Versed Amount: 1 mg Route: I.V. Start: 3:34 PM Stop: 3:34 PM Medication: Fentanyl Amount: 50 mcg Route: I.V. Start: 3:35 PM Stop: 3:35 PM Medication: Versed Amount: 1 mg Route: I.V. Start: 3:42 PM Stop: 3:42 PM Medication: Verapamil Amount: 5 mg Route: I.A. Start: 3:42 PM Stop: 3:42 PM Medication: Nitrogylcerin Amount: 200 mcg Route: I.A. Start: 3:28 PM Stop: 3:28 PM Medication: Versed Amount: 1 mg Route: I.V. Start: 3:28 PM Stop: 3:28 PM Medication: Fentanyl Amount: 50 mcg Route: I.V. Start: 3:43 PM Stop: 3:43 PM Medication: Versed Amount: 1 mg Route: I.V. Start: 3:43 PM Stop: 3:43 PM Medication: Fentanyl Amount: 50 mcg Route: I.V. Start: 3:45 PM Stop: 3:45 PM Medication: Heparin Amount: 5000 units Route: I.V. Start: 3:47 PM Stop: 3:47 PM Medication: Versed Amount: 2 mg Route: I.V. Start: 3:50 PM Stop: 3:50 PM Medication: Fentanyl Amount: 50 mcg Route: I.V. I, the attending physician, have reviewed and verified all procedure medications. Yes, all medications given per verbal order History/Risk Factors Hypertension: Yes Dyslipidemia: Yes Peripheral Arterial Disease (PAD): No Myocardial Infarction (AZ): No Obesity: Yes Renal Disease: No Prior Interventions PCI: No CABG: No Valve Surgery: No Report Signatures Finalized by Dr Deonna Medina MD [facility] on 12/29/2020 04:40 PM
[2020-12-29] MEDS: diphenhydrAMINE 50 mg Capsule PO (13:22)
--- NOTE | 2020-12-29 14:24 | W.PM.OPSUD ---
Surgery/Procedure H&P Update DATE OF PROCEDURE: December 29, 2020 DATE H&P PERFORMED: 12/13/19 H&P UPDATE INFORMATION: I have reviewed H&P completed within last 30 days, I have examined patient prior to procedure and No changes to prior documentation PREOP DIAGNOSIS: Abnormal stress test/strong family history for premature ASHD PLANNED PROCEDURE: Operation Date: 12/29/20 14:00 Proposed Procedures p Cardiac Catheterization 61679 R07.89(Left) - Deonna Medina MD PATIENT REASSESSED PRIOR TO SEDATION, WITH NO CHANGE NOTED: Yes PHYSICAL EXAM: alert, oriented x 3, clear to auscultation bilaterally and regular rate & rhythm AIRWAY EVAL/ANESTHESIA PLAN: normal airway, see other exam findings, ASA II, Monitored Anesthesia, Local Anesthesia, Risks, benefits & alternatives of sedation and/or procedure discussed and Patient agrees to continue as planned
[2020-12-29] MEDS: carvedilol 6.25 mg Tablet PO (19:27)
--- NOTE | 2020-12-29 19:49 | PC.NURSE ---
TR band removed at 1924, pt provided with discharge education, IV removed with cathalon intact and pressure dressing aplied. Patient assisted out to emergency department waiting room for uber ride home with all belongings via a wheelchair
== END 2020-12-29 19:44 | disposition home or self-care (01) ==
LOC: ICU 17:48
PROVIDERS: Admitting Provider Internal Medicine Cardiovascular Disease; PCP Emergency Medicine Emergency Medical Services; Visit Provider Internal Medicine Cardiovascular Disease
DX: R94.39 Abnormal result of other cardiovascular function study (principal); F31.9 Bipolar disorder, unspecified; F43.12 Post-traumatic stress disorder, chronic; F41.1 Generalized anxiety disorder; F33.2 Major depressive disorder, recurrent severe without psychotic features; Z87.891 Personal history of nicotine dependence; E78.5 Hyperlipidemia, unspecified; I10 Essential (primary) hypertension; Z82.49 Family history of ischemic heart disease and other diseases of the circulatory system
CPT/HCPCS: 90834; 36415; 93452; C1769; C1887; C1894; G0378; J1644; J2250; J3010; J3490; J7030; Q0163; Q9967

== ENCOUNTER → 2021-01-05 08:07 | Outpatient (BNVA) | payer OTHER, SELFPAY | PROVIDERS: PCP Emergency Medicine Emergency Medical Services; Visit Provider Counselor Professional | DX: F43.12 Post-traumatic stress disorder, chronic (principal); F31.9 Bipolar disorder, unspecified; F41.1 Generalized anxiety disorder; F33.2 Major depressive disorder, recurrent severe without psychotic features | CPT/HCPCS: 90832 ==

== ENCOUNTER → 2021-01-24 10:06 | Outpatient (BNVA) | payer OTHER, SELFPAY | PROVIDERS: PCP Emergency Medicine Emergency Medical Services; Visit Provider Thoracic Surgery (Cardiothoracic Vascular Surgery) | DX: R91.1 Solitary pulmonary nodule (principal) | CPT/HCPCS: 87635 ==

== ENCOUNTER 2021-01-29 14:24 | Inpatient (IN) | payer OTHER, SELFPAY ==
[2021-01-24 11:24] VITALS: BMI 35.5
--- NOTE | 2021-01-24 12:02 | ANES.PREANE2 ---
Pre-Anesthetic Assessment Pre-Anesthetic Assessment: Height/Weight: Height 1.96 m Weight 136.078 kg Preop Diagnosis: Left lung mass Proposed Procedure: Operation Date: 01/29/21 10:30 Proposed Procedures p Lobectomy left lower Lung mass(Left) - Giancarlo Covarrubias MD Familial anesthetic complications: None Social: Social History: Tobacco and No alcohol Exam: Pre-Anes Outpt Exam: alert, oriented x 3, clear to auscultation bilaterally and regular rate & rhythm Airway: MP: 4 Dentition: Chipped (molars) Additional comments: large tongue CV/HEM: CV/HEM: Angina (Stable) and CAD GI: GI: GERD Anesthetic Plan: ASA status: 3 Anesthesia: General and Regional (specify below) Risk of > 500 ml blood loss (7ml/kg in children): Yes, adequate IV access and fluids planned PFSH Anesthesia PFSH: Medical History (Updated 01/05/21 @ 09:55 by Giancarlo Covarrubias MD) Abnormal EKG Atypical chest pain Benign essential HTN Bipolar disorder Deviated septum Dyslipidemia Dysphagia GERD and gastritis and duodenitis.Patient will be started on medical management, no evidence of esophageal strictures or masses GERD (gastroesophageal reflux disease) Hypertension Laryngopharyngeal reflux Left lower lobe pulmonary nodule PTSD (post-traumatic stress disorder) SOB (shortness of breath) Surgical History History of colonoscopy with polypectomy (~08/2019) Family History Father , had sudden cardiac at the age of 57 No problems noted. Brother No problems noted. Denies family history of Diabetes CAD (coronary artery disease) Clotting disorder Dementia Chronic kidney disease (CKD) Suicide Anesthesia complication Bleeding disorder Lung disease Cancer Stroke Social History Smoking and tobacco status: former smoker Quit status (tobacco): has quit using tobacco Smoking risk assessment/counseling performed?: No Alcohol intake: former Lives independently: Yes Household members: none Marital status: History of recent travel: No Current gender identity: Male Data Anesthesia Cardiac Studies: No Data to Display
[2021-01-24 12:11] LABS: Basophils # 0.1 10^3/uL (0.0-0.1); Basophils % 1.2 %; Eosinophils # 0.3 10^3/uL (0.0-0.8); Eosinophils % 3.3 %; Hematocrit 41.5 % (42.0-52.0); Hemoglobin 13.6 g/dL (11.7-16.6); Lymphocytes # 2.8 10^3/uL (0.8-4.8); Lymphocytes % 37.1 %; Mean Corpuscular HGB Conc 32.8 g/dL (30.0-36.0); Mean Corpuscular Hemoglobin 31.4 pg (28.0-34.0); Mean Corpuscular Volume 95.8 fL (80-94); Monocytes # 0.7 10^3/uL (0.2-0.9); Monocytes % 9.4 %; Neutrophils # 3.68 10^3/uL (1.8-7.7); Neutrophils % 48.9 %; Nucleated Red Blood Cells % 0 %; Platelet Count 264 10^3/cmm (130-400); Red Blood Count 4.33 10^6/uL (4.1-5.3); Red Cell Distribution Width 12.2 % (12.1-15.1); White Blood Count 7.5 10^3/uL (4.0-10.0)
[2021-01-24 12:12] LABS: Urine Appearance Clear (CLEAR); Urine Color Yellow (Yellow)
[2021-01-24 12:13] LABS: pH Urine 5 (5-7)
[2021-01-24 12:14] LABS: Add Urine Microscopic? YES; Bilirubin Urine Neg (Negative); Blood Urine 2+ (Negative); Glucose Urine UA Norm (Normal); Ketones Urine Negative (Negative); Leukocyte Esterase Urine Negative (Negative); Nitrate Urine Negative (Negative); Protein Urine Neg (Negative); Urobilinogen Urine Norm (Negative)
[2021-01-24 12:21] LABS: INR 0.97 (0.8-1.2)
[2021-01-24 12:31] LABS: Add Urine Culture? Yes; Bacteria Urine TRACE /hpf; Mucus Urine TRACE /hpf
[2021-01-24 13:19] LABS: Alanine Aminotransferase 27 U/L (0-41); Albumin Level 4.8 g/dL (3.5-5.2); Alkaline Phosphatase 64 IU/L (40-130); Anion Gap 12.7 (5-19); Aspartate Amino Transferase 25 U/L (0-40); Blood Urea Nitrogen 11 mg/dL (6-20); Calcium 9.4 mg/dL (8.5-10.5); Carbon Dioxide 26 mmol/L (22-29); Chloride 101 mmol/L (98-107); Glomerular Filtration Rate 88.6 mL/min (90-130); Glucose 94 mg/dL (65-115); Osmolality Calculated 281 mOsm/kg (285-295); Potassium 3.7 mmol/L (3.5-5.1); Sodium 136 mmol/L (136-145); Total Bilirubin 0.2 mg/dL (0.15-1.2); Total Protein 7.8 g/dL (6.6-8.7)
[2021-01-29] VITALS (12 sets, daily range): BP systolic 123–149; BP diastolic 88–101; PULSE 62–80; RESP 14–19; TEMP 36.6; O2SAT 94–97
--- NOTE | 2021-01-29 07:32 | ECG_ITS ---
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 Measurements Intervals [place] Rate: 71 P: 61 DC: 168 QRS: -1 QRSD: 105 T: 32 QT: 401 QTc: 439 Interpretive Statements SINUS RHYTHM INCOMPLETE RIGHT BUNDLE BRANCH BLOCK [90+ ms QRS DURATION, TERMINAL R IN V1/V2, 40+ ms S IN I/aVL/V4/V5/V6] NONSPECIFIC ST & T-WAVE ABNORMALITY Compared to ECG 12/14/2020 21:00:42 Incomplete right bundle-branch block now present T-wave abnormality still present Electronically Signed On 01-29-2021 19:22:25 CDT by Reuben Ibarra M.D. [id number]
--- NOTE | 2021-01-29 08:55 | P.ANESUD_ITS ---
Pre-Anesthetic Update Pre-Anesthetic Assessment: Date of Surgery/Procedure: 01/29/21 Preop Flores gnosis: Abnormal stress test/strong family history for premature ASHD Proposed Procedure: Operation Date: 01/29/21 10:00 Proposed Procedures p Lobectomy left lower Lung mass(Left) - Giancarlo Covarrubias MD Any changes to Pre-Anesthetic Assessment?: No Last Intake: Intake Last Liquid Date 01/28/21 Last Solid Date 01/28/21 Vitals: Temperature 98 F 01/29/21 07:50 Temperature Source Temporal Artery S can 01/29/21 07:50 Pulse Rate 75 01/29/21 07:50 Pulse Rhythm 01/29/21 07:45 Pulse Strength 3+ Normal 01/29/21 07:45 Respiratory Rate 18 01/29/21 07:50 Blood Pressure 149/101 01/29/21 07:50 Blood Pressure Christine n 117 01/29/21 07:50 Pulse Oximetry 97 01/29/21 07:50 Oxygen Delivery Me thod 01/29/21 07:50 Exam: Pre-Anes Outpt Exam: alert, oriented x 3, clear to auscultation bilaterally and regular rate & rhythm Cardiac Studies: No Data to Display
--- NOTE | 2021-01-29 08:56 | ANES.PROC ---
Anesthesia Procedures Procedure/Date: 01/29/21 Epidural: Time Out Performed: Yes Consents Signed: Procedure Consent, NPO Consent and No Consent Needed Consent: requested by attending/covering physician, from patient, risks and benefits reviewed and patient agrees to proceed Thoracic Level: other (T7-8) Epidural position: sitting Epidural procedure: sterile prep of area, 1% lidocaine to numb the area, 18 g needle, negative for paresthesia passed, neg for paresthesia, test dose given, 1.5% xylocaine 1:200k epi (3 cc), placed PCEA, no systemic response, sterile dressing applied and L.U.D. no apparent complications Additional Comments: MARGUERITE at 9 cm, threaded to 15 cm
[2021-01-29] MEDS: midazolam 1 mg/mL INJ 5 ML 5 MG IVP (09:15)
--- NOTE | 2021-01-29 09:16 | W.PM.OPSUD ---
Surgery/Procedure H&P Update DATE OF PROCEDURE: January 29, 2021 DATE H&P PERFORMED: 01/05/21 H&P UPDATE INFORMATION: I have reviewed H&P completed within last 30 days, I have examined patient prior to procedure (Left side has been appropriately marked.) and No changes to prior documentation PREOP DIAGNOSIS: Left lower lobe lung mass; PET positive PRIMARY INDICATION FOR PROCEDURE: PET positive left lower lobe lung mass PLANNED PROCEDURE: Operation Date: 01/29/21 10:00 Proposed Procedures p Lobectomy left lower Lung mass(Left) - Giancarlo Covarrubias MD
[2021-01-29] MEDS: sodium chloride 0.9% 1,000 ML 30 ML IV (09:24)
[2021-01-29] MEDS: vancomycin 1,000 MG in sodium chloride 0.9% 250 ML 250 MG IV (09:39)
[2021-01-29] MEDS: vancomycin 1,000 MG SDV 2000 MG IRRIGATION (11:33)
--- NOTE | 2021-01-29 14:26 | ANE.PACU2 ---
Inpatient post-anesthesia follow up: Airway intact: Yes Vital signs: Temperature 98 F Pulse Rate 75 Respiratory Rate 18 Blood Pressure 149/101 Pulse Oximetry 97 Oxygen Delivery Me thod Room Air Oxygen Flow Rate Fraction of Inspir ed Oxygen Hydration adequate: Yes Nausea and vomiting: Yes Pain level: 1 Mental status: Baseline
--- NOTE | 2021-01-29 14:35 | PM.OP ---
Operative Report Date of procedure: January 29, 2021 Pre-op Diagnosis: Left lower lobe lung mass; PET positive Post-op diagnosis: same Procedure Done: Left thoracotomy with left lower lobectomy Specimens removed/disposition: Left lower lobe Surgeon: Giancarlo Covarrubias Anesthesia: General Complications: 9 Condition: stable Disposition: ICU Brief History: 50-year-old gentleman referred to our service by Dr. Bryan from the local [facility] for evaluation of an incidental finding of approximately 2 cm left lower lobe mass notified on CT scan of the chest as part of he has evaluation for dyspnea. There is noted to be increased activity on PET scan in this lesion but not elsewhere and the patient does have a substantial history of tobacco use in the past. Preop evaluation separately include a left heart catheterization by Dr. Medina due to a strong family history and suspicious symptoms. No intervention was required. He was electively admitted for planned lobectomy. Details the risk of the procedure were carefully and frankly discussed. Proper consents were reviewed and signed. Procedure: Thoracic epidural catheter was placed prior to entering the surgical suite. Mr. Mcdonald underwent general endotracheal anesthesia with double-lumen endotracheal tube placed. Appropriate invasive lines were placed. He was placed in the right lateral decubitus position over axillary roll and protective padding. His entire left chest was sterilely prepped and draped. A muscle-sparing limited left thoracotomy incision was made with cautery used to control bleeding. Latissimus muscle was divided. The anterior serratus muscle was retracted but not divided. The fifth intercostal space was entered. Moist laparotomy pads and the Finochietto retractor were placed. The chest was carefully opened. Lateral and inferior left lower lobe mass could be easily palpated. The pleura was opened circumferentially around the hilum. Inferior pulmonary ligament was taken down. Hilar dissection was initiated anteriorly and superiorly. The inferior pulmonary vein was controlled and stapled. It was then divided. Dissection was then continued cranially isolating branches of the pulmonary artery to the left lower lobe. These were also taken down ligated and divided. Posteriorly, the bronchus to the left lower lobe was dissected free. Next, left lower lobe bronchus was stapled and sharply divided with scalpel. Left lower lobe specimen was removed. Lymph node sampling included those collected in the hilum as well as the inferior pulmonary ligament node. The entire chest was irrigated with large amounts of antibiotic solution. Left upper lobe was reinflated. No substantial air leaks were identified. 28 Trinidadian drain was placed over the diaphragm and out to the apex. This was connected to Pleur-evac suction. Retractor and sponges were removed. Sponge and needle count was correct. Chest wall was reapproximated with interrupted #1 Vicryl suture. The fascia was closed with running 0 Vicryl suture. The subcutaneous layer was closed with 2-0 Vicryl suture. Skin was reapproximated in a subcuticular manner with 3-0 Monocryl suture. Sterile dressing was applied. Patient was returned to the supine position and awakened from anesthesia. Mr. Mcdonald was extubated. He was then transferred to the ICU. As he had instructed us preoperatively, he did not wish for immediate family to be notified. Chest x-ray is pending.
--- NOTE | 2021-01-29 15:00 | PC.NURSE ---
Upon inspection of epidural site, site was noted to be open to air et not covered with the occlusive dressing. The epidural tubing was covered with the occlusive dressing but the actual site where the catheter goes into the patient was exposed. Site was cleansed with betadine et covered until anesthesia was notified. RN will notify anesthesia ANA. Dr. Covarrubias was at bedside et was notified.
--- NOTE | 2021-01-29 15:01 | XRR_ITS ---
PROCEDURE INFORMATION: Exam: XR Chest Exam date and time: 01/29/2021 3:22 PM Age: 50 years old Clinical indication: Device placement; Other: Left lower lobectomy; Prior surgery; Surgery date: Post-operative (0-2 days); Additional info: Status post left lower lobectomy TECHNIQUE: Imaging protocol: XR of the chest Views: 1 view. Total images: 1 COMPARISON: CR XR chest 1V portable [id number] 12/14/2020 7:05 PM FINDINGS: Tubes, catheters and devices: Left thoracotomy tube in place tip left lung apex. EKG leads. Lungs: Left hemithorax skin debbie. Minimal discoid atelectasis right lung base. Evidence of very mild interstitial edema. Pleural spaces: No visible pleural effusion or pneumothorax. Heart/Mediastinum: Unremarkable. No cardiomegaly. Bones/joints: Status post left thoracotomy. XR/XR chest 1V portable [id number] IMPRESSION: 1. Status post left thoracotomy. 2. Left thoracotomy tube tip left lung apex. 3. Minimal discoid atelectasis right lung base. 4. Minimal interstitial edema.
--- NOTE | 2021-01-29 15:35 | PM.MISC ---
Miscellaneous Note Purpose of Documentation: Acute pain Note: Called to ICU at approximately 1530 to evaluate patient for acute pain. Informed by nurse upon visitation that patient's epidural dressing has come loose and the epidural insertion site was uncovered. She applied chloroprep and reapplied/reinforced dresssing. Unfortunately, epidural is no longer considered sterile if insertion site is uncovered. Epidural was removed with tip intact. Will write for medication-based pain regimen and re-assess tomorrow.
[2021-01-29] MEDS: lactated ringers 1,000 ML 100 ML IV (15:47)
[2021-01-29] MEDS: morphine 4 mg/mL SDV 1 mL IVP (15:48)
[2021-01-29] MEDS: acetaminophen 500 mg Tablet 1000 MG PO ×2 (16:20→21:57)
[2021-01-29] MEDS: fentaNYL 50 mcg/mL INJ 2mL IVP (16:22)
[2021-01-29] MEDS: morphine 4 mg/mL SDV 1 mL 2 MG IVP (17:36)
[2021-01-29] MEDS: oxyCODONE 5 mg IR Tab/Cap 10 MG PO (17:38)
[2021-01-29] MEDS: carvedilol 6.25 mg Tablet PO (17:39)
[2021-01-29] MEDS: HYDROmorphone 1 mg/mL INJ 1 mL 0.5 MG IVP ×2 (18:38→21:14)
[2021-01-29] MEDS: gabapentin 300 mg Capsule PO (21:12)
[2021-01-29] MEDS: atorvastatin 40 mg Tablet 20 MG PO (21:13)
[2021-01-30] VITALS (25 sets, daily range): BP systolic 113–165; BP diastolic 71–104; PULSE 58–98; RESP 0–31; TEMP 36.6–37.3; O2SAT 86–100
[2021-01-30] MEDS: HYDROmorphone 1 mg/mL INJ 1 mL 0.5 MG IVP ×4 (00:03→07:48)
[2021-01-30] MEDS: lactated ringers 1,000 ML 100 ML IV ×2 (02:31→15:14)
[2021-01-30] MEDS: acetaminophen 500 mg Tablet 1000 MG PO ×4 (04:10→21:52)
[2021-01-30 05:32] LABS: Basophils % 0.2 %; Hematocrit 37.4 % (42.0-52.0); Hemoglobin 12.3 g/dL (11.7-16.6); Lymphocytes % 7.8 %; Mean Corpuscular HGB Conc 32.9 g/dL (30.0-36.0); Mean Corpuscular Hemoglobin 31.5 pg (28.0-34.0); Mean Corpuscular Volume 95.7 fL (80-94); Mean Platelet Volume 10.1 fL (7.4-10.4); Monocytes # 1.3 10^3/uL (0.2-0.9); Monocytes % 10.3 %; Neutrophils # 10.62 10^3/uL (1.8-7.7); Neutrophils % 81.3 %; Nucleated Red Blood Cells % 0 %; Platelet Count 232 10^3/cmm (130-400); Red Blood Count 3.91 10^6/uL (4.1-5.3); Red Cell Distribution Width 12.3 % (12.1-15.1); White Blood Count 13.1 10^3/uL (4.0-10.0)
[2021-01-30 05:46] LABS: Anion Gap 13.1 (5-19); Blood Urea Nitrogen 15 mg/dL (6-20); Calcium 8.2 mg/dL (8.5-10.5); Carbon Dioxide 27 mmol/L (22-29); Chloride 102 mmol/L (98-107); Glomerular Filtration Rate 101.5 mL/min (90-130); Glucose 137 mg/dL (65-115); Osmolality Calculated 289 mOsm/kg (285-295); Potassium 4.1 mmol/L (3.5-5.1); Sodium 138 mmol/L (136-145)
--- NOTE | 2021-01-30 06:38 | P.PN_ITS ---
Subjective Subjective: Interval history: POD #1 status post left lower lobectomy. Uneventful night. Thoracotomy discomfort under reasonably good control. Chest tube output 450 cc since surgery. No airleak with respirations or forced cough Vital signs stable. Vitals/I&O/Wt Last Vital Signs Temp 98 F 01/29/21 07:50 Pulse 60 01/30/21 06:00 Resp 16 01/30/21 06:00 BP 134/90 01/30/21 06:00 Pulse Ox 94 01/30/21 05:00 01/29/21 01/29/21 01/30/21 14:59 22:59 06:59 Intake Total 250 / 250 538 / 788 1860 / 2648 Output Total 1710 / 1710 1020 / 2730 Balance 250 / 250 -1172 / -922 840 / -82 Physical Exam Chest: COMMONS NORMALS: normal inspection of the chest and normal palpation of entire chest wall OTHER: Dry dressings in place. Good tidling from chest tube Resp: COMMON NORMALS: normal respiratory effort and No use of accessory muscles EFFORT & INSPECTION: Yes able to speak in complete sentences, Yes symmetric chest movement and No tachypneic OTHER: Basilar crackles Cardio: COMMON NORMALS: regular rate, regular rhythm, S1 normal heart sound present, No gallops present (Cardio), No murmurs present (Cardio) and No rub (Cardio) RATE: regular rate RHYTHM: regular rhythm HEART SOUNDS: S1 normal heart sound present Urinary Catheter Management^: Roberson: Cath Placed During This Visit: yes Reason for Continuing Indwelling Catheter: Accurate Measurement of Urinary Output in Critically Ill Patients Urinary Catheter Date of Insertion: 01/29/21 Urinary Catheter Time of Insertion: 10:50 Data : 01/30/21 05:12 01/30/21 05:12 A&P Assessment and plan (1) Status post lobectomy of lung: Postop day #1 status post left lower lobectomy Plan: Out of bed in chair. Aggressive pulmonary toilet. Will place chest tube to waterseal this evening. Chest x-ray in a.m. Status: Acute Attestations Medical Necessity Statement*: Postop day #1 status post left lower lobectomy. Pathology pending. Coding Level of Care Code Acute Char Conveyor Tender for Benedicto Felipe Diagnoses Status post lobectomy of lung Z90.2
--- NOTE | 2021-01-30 07:04 | ANE.PACU2 ---
Inpatient post-anesthesia follow up: Airway intact: Yes Vital signs: Temperature 98 F Pulse Rate 60 Respiratory Rate 16 Blood Pressure 134/90 Pulse Oximetry 94 Oxygen Delivery Me thod Nasal Cannula Oxygen Flow Rate 4 Fraction of Inspir ed Oxygen Hydration adequate: Yes Nausea and vomiting: No Pain level: 4 Mental status: Baseline Additional Comments: Offered patient opportunity to have epidural replaced, feels regimen is ok right now and would prefer not to have epidural procedure repeated at this time.
--- NOTE | 2021-01-30 08:00 | PC.NURSE ---
Pt had home med Nicotine Lozenges at his bedside.
[2021-01-30] MEDS: fentaNYL 50 mcg/mL INJ 2mL 100 MCG IVP (09:15)
[2021-01-30] MEDS: hydroCHLOROthiazide 25 mg Tablet PO (09:59)
[2021-01-30] MEDS: gabapentin 300 mg Capsule PO ×3 (10:00→20:23)
[2021-01-30] MEDS: carvedilol 6.25 mg Tablet PO ×2 (10:00→18:05)
[2021-01-30] MEDS: fluoxetine 20 mg Capsule 60 MG PO (10:00)
[2021-01-30] MEDS: amlodipine 5 mg Tablet PO (10:00)
[2021-01-30] MEDS: aspirin 81 mg EC Tablet PO (10:00)
[2021-01-30] MEDS: pantoprazole DR 40 mg Tablet PO (10:00)
[2021-01-30] MEDS: oxyCODONE 5 mg IR Tab/Cap 10 MG PO ×3 (10:27→20:23)
--- NOTE | 2021-01-30 12:15 | PC.CHAP ---
Pastoral Care Encounter/Spiritual Assessment Type of Contact [] Declined adult school teacher visit [] Patient/Family/Request visit [] Outpatient visit [] Follow-up visit [] Physician referral [] Code/Alert [x] Routine visit [] Staff referral [] Actively dying [x] Patient sleeping [] Family support [] [] Out of room [] Palliative care [] [] Receiving care in room [] Pre-surgical visit [] Trauma [] Long length of stay [x] ICU visit [x] Other: patient sleeping in chair... Relational/Emotional Strength [] Patient feels connected with others/family/visitors/staff [] Distress [] Loneliness/isolation [] Abandonment Spirituality of Patient [] Person of Nava [] Attends Yazidism of their Nava [] Believes in Prayer [] Reads Bible or Anabaptist materials [] There are Spiritual issues to be addressed Stacker Interventions [x] Prayer [] Active listening [] Non-anxious presence [] Spiritual/emotional support [] Crisis/trauma care [] Spiritual counseling [] Bereavement support [] Provided bereavement packet [] Provided Bible/devotional materials [] Provided toy/stuffed animal, coloring book to patient or family member [] Provided Communion [] Anointing/[place] [] Salvation [x] Completed spiritual assessment [] Other: Impact on Illness or Injury [] Angry [] Fearful [] Anxious [] Often cries [] Exhaustion [] Unable to work [] Unable to attend sikhism [] Unable to walk/stand [] Unable to read [] Unable to drive [] Unable to eat/drink [] Unable to sleep [] Unable to be with family [] Patient intubated [] Other: Summary Time spent with patient
--- NOTE | 2021-01-30 18:00 | PC.NURSE ---
MAR cleaned up. PACU and epidural orders discontinued.
--- NOTE | 2021-01-30 18:20 | PC.NURSE ---
All care provided by Nai Naik, student nurse, supervised directly by this nurse.
--- NOTE | 2021-01-30 18:40 | PC.NURSE ---
shift summary: pt has been out of bed most of the day in chair. He dozes most of the time. He has ambulated once, one round the ICU and hallway He tolerated it well. Per Pt pain more controlled today. He has received Dilaudid IV this am and Oxycodone IR twice. Lungs are diminished but clear. Chest tube output of 320ml serous-sangiouness fluid, dressings intact. Occassional PVCs noted on monitor. Roberson removed 1800, pt due to void. Pt uses IS when encouraged.
--- NOTE | 2021-01-30 19:44 | PC.NURSE ---
Report given to AAKASH Acuña.
[2021-01-30] MEDS: atorvastatin 40 mg Tablet 20 MG PO (20:23)
[2021-01-31] VITALS (19 sets, daily range): BP systolic 71–162; BP diastolic 60–106; PULSE 63–87; RESP 13–24; TEMP 36.6–37.1; O2SAT 89–95
[2021-01-31] MEDS: oxyCODONE 5 mg IR Tab/Cap 10 MG PO ×5 (00:24→21:07)
[2021-01-31] MEDS: acetaminophen 500 mg Tablet 1000 MG PO ×4 (04:19→21:06)
--- NOTE | 2021-01-31 06:00 | XR_ITS ---
WS: [id number] Portable AP upright chest, 01/31/2021 Clinical Data: POD #2 status post left lower lobectomy. CT to water seal Comparison: Portable chest, 01/29/2021. Findings: No nodules, masses or effusions are seen. The heart is normal. The pulmonary vascularity is not increased. No pneumonia or pneumothorax is seen. The left chest tube remains in the same positio n. The patient has a poor inspiratory effort. There is bibasilar atelectasis. Thoracotomy debbie are seen along the left chest wall. Monitor leads are on the chest wall. XR/XR chest 1V portable [id number] Impression: 1. No change in left chest tube. 2. No change in bibasilar atelectasis.
--- NOTE | 2021-01-31 06:19 | P.PN_ITS ---
Subjective Subjective: Interval history: POD #2 status post left lower lobectomy. Nurses report no concerns. Resting well on my rounds this morning. O2 saturation 91 to 92% on room air. Chest tube output 320 cc past 24 hours no air leak. Postop thoracotomy discomfort appears to be under good control. Epidural catheter removed due to dislodged bandage. Pathology pending. Vitals/I&O/Wt Last Vital Signs Temp 97.8 F 01/31/21 04:00 Pulse 69 01/31/21 06:00 Resp 14 01/31/21 06:00 BP 128/96 01/31/21 06:00 Pulse Ox 92 01/31/21 06:00 01/30/21 01/30/21 01/31/21 14:59 22:59 06:59 Intake Total 2250 / 2250 500 / 2750 500 / 3250 Output Total 130 / 130 2890 / 3020 500 / 3520 Balance 2120 / 2120 -2390 / -270 0 / -270 Physical Exam Chest: COMMONS NORMALS: normal inspection of the chest OTHER: Chest wall stable. No subcutaneous emphysema. Surgical dressings in place. Resp: COMMON NORMALS: normal respiratory effort, No retractions, No use of accessory muscles and percussion normal PERCUSSION: percussion normal OTHER: Breath sounds bilaterally with some crackles and slightly blunted in the left base posteriorly Cardio: COMMON NORMALS: regular rate, regular rhythm, S1 normal heart sound present, No murmurs present (Cardio) and No rub (Cardio) RATE: regular rate RHYTHM: regular rhythm HEART SOUNDS: S1 normal heart sound present Extremity: COMMON NORMALS: no clubbing, cyanosis or edema Urinary Catheter Management^: Roberson: Cath Placed During This Visit: yes, but has since been removed by the nurse Reason for Continuing Indwelling Catheter: Decision to DC Catheter Urinary Catheter Date of Insertion: 01/29/21 Urinary Catheter Time of Insertion: 10:50 Date Urinary Catheter Removed: 01/30/21 Time Urinary Catheter Discontinued: 18:17 Data : 01/30/21 05:12 01/30/21 05:12 A&P Assessment and plan (1) Status post lobectomy of lung: Postop day #2 status post left lower lobectomy. Plan: Will transfer to [facility]. Continue pulmonary toilet. Lovenox prophylaxis. Will discontinue chest tube once output decreases further. Chest x-ray in a.m. Status: Acute Attestations Medical Necessity Statement*: POD #2 status post left lower lobectomy. Pathology pending. Time Spent in Patient Care: less than 15 minutes Coding Level of Care Code Acute Mold Repair Technician for Chg Fwd Diagnoses Status post lobectomy of lung Z90.2
--- NOTE | 2021-01-31 07:15 | PC.NURSE ---
Pt had 800mg of seroquel ordered at bedtime. Pt requests to only take 200mg. 200mg of seroquel given per pt request, unable to chart on MAR
[2021-01-31] MEDS: gabapentin 300 mg Capsule PO ×3 (08:39→21:06)
[2021-01-31] MEDS: aspirin 81 mg EC Tablet PO (08:39)
[2021-01-31] MEDS: carvedilol 6.25 mg Tablet PO ×2 (08:39→19:02)
[2021-01-31] MEDS: hydroCHLOROthiazide 25 mg Tablet PO (08:39)
[2021-01-31] MEDS: fluoxetine 20 mg Capsule 60 MG PO (08:39)
[2021-01-31] MEDS: pantoprazole DR 40 mg Tablet PO (08:40)
[2021-01-31] MEDS: amlodipine 5 mg Tablet PO (08:40)
--- NOTE | 2021-01-31 09:30 | PC.NURSE ---
Pt ambulated 2 times around ICU and hallway without difficulty. Pt have several bouts of loose coughing during ambulating.
[2021-01-31] MEDS: enoxaparin 40 mg/0.4 mL Syringe SUBCUT (14:55)
--- NOTE | 2021-01-31 16:00 | PC.NURSE ---
Pt ambulated 2 times around ICU and hallway. Pt stated he could tell the difference in breathing after he ambulated. Acouple of coughing spells during ambulation noted. Cough was loose.
--- NOTE | 2021-01-31 16:40 | PC.RESP ---
Smoking Cessation information sent to patient.
--- NOTE | 2021-01-31 19:20 | PC.NURSE ---
Report given to AAKASH Edwards
--- NOTE | 2021-01-31 19:30 | PC.NURSE ---
Shift summary: Pt stated his pain was better today.. This evening he said around the chest tube was starting to pinch more He has received oral pain meds twice today, see MAR. He has sat up in chair most of the day, mostly dozing. He has ambulated twice today without difficulty.. Sinus rhythm with occasional PVCs noted on monitor. Crackles noted when lungs auscultated this am, some improvement noted this evening, tracey. after the ambulation, encouraging IS use and Coughing. Chest tube output less than yesterday, 250ml noted. Pt educated on ambulating, smoking cessation , and speaking with his primary physician about nicotine patches, etc to help with smoking cessation when discharged.
--- NOTE | 2021-01-31 19:31 | PC.NURSE ---
All care by Nai Naik, student nurse, directly supervised by this nurse.
[2021-01-31] MEDS: atorvastatin 40 mg Tablet 20 MG PO (21:05)
--- NOTE | 2021-01-31 21:10 | PC.NURSE ---
Patient ordered 800mg of Seroquel and only requested to take 400mg. System wouldn't let me scan a smaller dose. 400mg of seroquel administered per pts request. Continue care.
[2021-02-01] VITALS (26 sets, daily range): BP systolic 114–191; BP diastolic 69–114; PULSE 62–94; RESP 14–28; TEMP 36.6–37.1; O2SAT 87–94
[2021-02-01] MEDS: acetaminophen 500 mg Tablet 1000 MG PO ×4 (03:02→21:25)
--- NOTE | 2021-02-01 06:00 | XR_ITS ---
WS: [id number] Portable AP upright chest, 02/01/2021 Clinical Data: POD#3 s/p left lower lobectomy Comparison: Portable chest, 01/31/2021. Findings: The left chest tube remains in same position ending near the apex of the left thorax. The b ibasilar atelectasis and/or minimal pneumonia remains the same. The heart is slightly enlarged. The s urgical debbie on the left chest wall are noted. Monitor leads on the chest wall. XR/XR chest 1V portable [id number] Impression: 1. No change in bibasilar atelectasis. 2. No change in left chest tube.
--- NOTE | 2021-02-01 06:11 | PC.NURSE ---
Uneventful shift: Patient rested well throughout shift, patient did receive pain medication x1 on this shift. Chest tube output 215 this shift. No changes. Continue care
--- NOTE | 2021-02-01 06:54 | PM.PN ---
Subjective Subjective: Interval history: POD #3 status post left lower lobectomy. Pathology is still pending. Chest tube output water 75 cc past 24 hours. Output is very serous. No airleak. Good respiratory effort. Ambulating with assistance without difficulties. Chest x-ray remains clear. Vitals/I&O/Wt Last Vital Signs Temp 98.8 F 01/31/21 21:00 Pulse 67 02/01/21 06:00 Resp 21 H 02/01/21 06:00 BP 191/114 02/01/21 06:00 Pulse Ox 90 02/01/21 06:00 01/31/21 01/31/21 02/01/21 14:59 22:59 06:59 Intake Total 650 / 650 1110 / 1760 240 / 1999 Output Total 525 / 525 1489 / 2014 895 / 2910 Balance 125 / 125 -380 / -255 -655 / -910 Physical Exam Chest: COMMONS NORMALS: normal inspection of the chest and normal palpation of entire chest wall OTHER: Chest wall is stable. Surgical dressings clean and dry. Chest tube in good position. Resp: COMMON NORMALS: normal respiratory effort, No retractions, No use of accessory muscles, clear to auscultation bilaterally and percussion normal AUSCULTATION: clear to auscultation bilaterally PERCUSSION: percussion normal Cardio: COMMON NORMALS: regular rate, regular rhythm, S1 normal heart sound present, No gallops present (Cardio) and No murmurs present (Cardio) RATE: regular rate RHYTHM: regular rhythm HEART SOUNDS: S1 normal heart sound present Extremity: COMMON NORMALS: no clubbing, cyanosis or edema Urinary Catheter Management^: Roberson: Cath Placed During This Visit: yes, but has since been removed by the nurse Reason for Continuing Indwelling Catheter: Decision to DC Catheter Urinary Catheter Date of Insertion: 01/29/21 Urinary Catheter Time of Insertion: 10:50 Date Urinary Catheter Removed: 01/30/21 Time Urinary Catheter Discontinued: 18:17 Data : 01/30/21 05:12 01/30/21 05:12 A&P Assessment and plan (1) Status post lobectomy of lung: POD #3 status post left lower lobectomy. Pathology pending. Plan: Awaiting bed availability upstairs. I will plan to remove chest tube later today after initial ambulation and assessment of morning chest tube output. Home health referral is in place. Will tentatively plan for discharge tomorrow. Mr. Mcdonald has no immediate family members or support at home, therefore home health arrangements will need to be in place. Status: Acute Attestations Medical Necessity Statement*: POD #3 status post left lower lobectomy Time Spent in Patient Care: less than 15 minutes Coding Level of Care Code Acute Payroll Professional for Benedicto Fwasif Diagnoses Status post lobectomy of lung Z90.2
[2021-02-01] MEDS: oxyCODONE 5 mg IR Tab/Cap 10 MG PO ×3 (08:07→17:48)
[2021-02-01] MEDS: pantoprazole DR 40 mg Tablet PO (08:07)
[2021-02-01] MEDS: aspirin 81 mg EC Tablet PO (08:07)
[2021-02-01] MEDS: carvedilol 6.25 mg Tablet PO ×2 (08:07→17:48)
[2021-02-01] MEDS: gabapentin 300 mg Capsule PO ×3 (08:07→21:31)
[2021-02-01] MEDS: amlodipine 5 mg Tablet PO (08:07)
[2021-02-01] MEDS: fluoxetine 20 mg Capsule 60 MG PO (08:07)
[2021-02-01] MEDS: hydroCHLOROthiazide 25 mg Tablet PO (08:07)
--- NOTE | 2021-02-01 12:18 | PC.CHAP ---
Pastoral Care Encounter/Spiritual Assessment Type of Contact [] Declined instructional support assistant visit [] Patient/Family/Request visit [] Outpatient visit [] Follow-up visit [] Physician referral [] Code/Alert [x] Routine visit [] Staff referral [] Actively dying [] Patient sleeping [] Family support [] [] Out of room [] Palliative care [] [] Receiving care in room [] Pre-surgical visit [] Trauma [] Long length of stay [x] ICU visit [] Other: Relational/Emotional Strength [] Patient feels connected with others/family/visitors/staff [] Distress [] Loneliness/isolation [] Abandonment Spirituality of Patient [] Person of Nava [] Attends Moravian of their Nava [] Believes in Prayer [] Reads Bible or Scientology materials [] There are Spiritual issues to be addressed Timber Deadener Interventions [x Prayer [] Active listening [] Non-anxious presence [] Spiritual/emotional support [] Crisis/trauma care [] Spiritual counseling [] Bereavement support [] Provided bereavement packet [] Provided Bible/devotional materials [] Provided toy/stuffed animal, coloring book to patient or family member [] Provided Communion [] Anointing/[place] [] Salvation [x] Completed spiritual assessment [] Other: Impact on Illness or Injury [] Angry [] Fearful [] Anxious [] Often cries [] Exhaustion [] Unable to work [] Unable to attend anglican [] Unable to walk/stand [] Unable to read [] Unable to drive [] Unable to eat/drink [] Unable to sleep [] Unable to be with family [] Patient intubated [] Other: Summary Time spent with patient
[2021-02-01] MEDS: enoxaparin 40 mg/0.4 mL Syringe SUBCUT (14:19)
--- NOTE | 2021-02-01 17:04 | PM.MISC ---
Miscellaneous Note Note: Pleural chest tube was discontinued without difficulties. Thoracotomy dressings were also changed. Thoracotomy incision is clean, dry, and intact. Breath sounds are good bilaterally. We are still pending pathology report. If not available on chart by tomorrow morning, I will contact the pathology department directly. He currently is being prepared for transfer to the [facility]. We will have a chest x-ray obtained in the a.m. Hopefully, we will make preparations for discharge home tomorrow with home health services, as he lives alone.
[2021-02-01] MEDS: docusate sodium 100 mg Capsule PO (18:19)
[2021-02-01] MEDS: ketorolac 30 mg/mL INJ IVP (19:43)
--- NOTE | 2021-02-01 19:57 | PC.NURSE ---
Patient given PRN 30 mg IVP toradol for c/o incisional pain rated 7.
[2021-02-01] MEDS: atorvastatin 40 mg Tablet 20 MG PO (21:26)
--- NOTE | 2021-02-01 23:24 | PC.NURSE ---
Patient refused 800 mg dose of seroquel states he only takes 400 mg seroquel every night. Pharmacist notified. Will notify physician in am.
[2021-02-02] VITALS (10 sets, daily range): BP systolic 108–126; BP diastolic 56–82; PULSE 58–77; RESP 17–18; TEMP 36.6–36.7; O2SAT 93–95
[2021-02-02] MEDS: acetaminophen 500 mg Tablet 1000 MG PO ×2 (05:15→09:24)
--- NOTE | 2021-02-02 06:00 | XR_ITS ---
WS: [id number] Portable AP semiupright chest, 02/02/2021 Clinical Data: chest tube removal; POD #4 left lower lobectomy Comparison: Portable chest, 02/01/2021 Findings: The left chest tube has been removed. No nodules, masses or effusions are seen. The heart i s slightly enlarged.. The pulmonary vascularity is not increased. No pneumonia or pneumothorax is see n. Monitor leads are on the chest wall. The left chest subcutaneous debbie are noted. XR/XR chest 1V portable [id number] Impression: Removal of left chest tube with no pneumothorax.
--- NOTE | 2021-02-02 07:44 | PM.PN ---
Subjective Subjective: Interval history: POD #4 status post left lower lobectomy. Pathology pending. I will attempt to confer with my pathology colleague this morning. Chest tube removed yesterday. Chest x-ray this morning is stable. Positive flatus but no substantial bowel movement. Thoracotomy discomfort is under good control. Vitals/I&O/Wt Last Vital Signs Temp 98.0 F 02/02/21 07:32 Pulse 69 02/02/21 07:32 Resp 17 02/02/21 07:32 BP 125/77 02/02/21 07:32 Pulse Ox 95 02/02/21 07:32 02/01/21 02/02/21 02/02/21 22:59 06:59 14:59 Intake Total 140 / 860 500 / 1360 Output Total 400 / 1570 400 / 1970 Balance -260 / -710 100 / -610 Physical Exam Chest: COMMONS NORMALS: normal inspection of the chest and normal palpation of entire chest wall CHEST: Yes Symmetrical chest wall rise and No crepitus Resp: COMMON NORMALS: normal respiratory effort, No retractions and No use of accessory muscles EFFORT & INSPECTION: Yes able to speak in complete sentences and Yes symmetric chest movement AUSCULTATION: crackles (Bases) Cardio: COMMON NORMALS: regular rate, regular rhythm, S1 normal heart sound present, No murmurs present (Cardio) and No rub (Cardio) RATE: regular rate RHYTHM: regular rhythm HEART SOUNDS: S1 normal heart sound present Extremity: COMMON NORMALS: no clubbing, cyanosis or edema Urinary Catheter Management^: Roberson: Cath Placed During This Visit: yes, but has since been removed by the nurse Reason for Continuing Indwelling Catheter: Decision to DC Catheter Urinary Catheter Date of Insertion: 01/29/21 Urinary Catheter Time of Insertion: 10:50 Date Urinary Catheter Removed: 01/30/21 Time Urinary Catheter Discontinued: 18:17 Data : 01/30/21 05:12 01/30/21 05:12 A&P Assessment and plan (1) Status post lobectomy of lung: Postop day #4 status post left lower lobectomy Plan: Betasept shower this morning Lactulose p.o. Home O2 evaluation Confirm home health arrangements have been completed and plan for discharge later today. Status: Acute Attestations Medical Necessity Statement*: Status post left lower lobectomy Time Spent in Patient Care: less than 15 minutes Coding Level of Care Code Acute Cephalometric Technician for Chg Fwd Diagnoses Status post lobectomy of lung Z90.2
[2021-02-02] MEDS: hydroCHLOROthiazide 25 mg Tablet PO (08:01)
[2021-02-02] MEDS: gabapentin 300 mg Capsule PO ×2 (08:01→14:04)
[2021-02-02] MEDS: fluoxetine 20 mg Capsule 60 MG PO (08:01)
[2021-02-02] MEDS: lactulose oral liq 20 gm/30 mL UDC PO (08:01)
[2021-02-02] MEDS: carvedilol 6.25 mg Tablet PO (08:02)
[2021-02-02] MEDS: oxyCODONE 5 mg IR Tab/Cap 10 MG PO ×2 (08:02→12:53)
[2021-02-02] MEDS: aspirin 81 mg EC Tablet PO (08:02)
[2021-02-02] MEDS: amlodipine 5 mg Tablet PO (08:02)
[2021-02-02] MEDS: pantoprazole DR 40 mg Tablet PO (08:04)
[2021-02-02] MEDS: chlorhexidine gluconate 4% Btl 118 mL 1 APPLIC TOPICAL (09:24)
--- NOTE | 2021-02-02 11:37 | PHA.FALL ---
A Pharmacy Consult Was Conducted For Jose J Mcdonald Due To: Brasher Fall Scale Risk Level: High Fall Risk On 02/02/21 07:59 And A Medication Fall Risk Score Greater Than 10. The Recommendations Are As Follows: standout meds currently profiled: combinations increase risk of additive effects. Benadryl 25 mg q6h prn & benadryl 25 mg bedtime prn: dizziness, sedation, somnolence, dyskinesia prozac 60 mg daily: pt home med (last adjustment unknown, assume dose stable if >2-4 weeks): dizziness, somnolence gabapentin 300 mg tid: adr possible ataxia, dizziness, somnolence. With opioids, increased risk for sedation, resp depression, morphine 2 mg q1h prn: dizziness, lightheadedness, somnolence, combination with gabapentin see above
--- NOTE | 2021-02-02 12:07 | P.DS_ITS ---
Discharge Providers Date of Admission: 01/29/21 14:24 Date of Discharge: February 02, 2021 Attending Provider at Admission: Giancarlo Covarrubias MD Attending Provider at Discharge: Giancarlo Covarrubias MD Primary Care Provider: Bob Bryan DO Diagnoses at Discharge Discharge Diagnosis (1) Status post lobectomy of lung: Status: Acute Reason for Visit Reason for Visit: lung mass Hospital Course Hospital Course Mr. Mcdonald electively admitted on January 29 for planned resection of a left lower lobe lung mass with increased PET scan activity. This lesion was found incidentally CT scan during evaluation for dyspnea. He does have a history of tobacco use. With increased activity on PET scan, we recommended consideration for surgical extirpation. He had no other abnormal activity elsewhere inside the chest. He underwent careful preoperative evaluation and was elected admitted on January 29 where he underwent my muscle-sparing limited thoracotomy a left lower lobectomy. Postoperatively, he convalesced in the ICU for 2days where he did well. His epidural catheter became dislodged and was removed at the end of the first day but he has done well with parenteral and oral narcotic medication. He had really no air leak after surgery and chest of output slowly decreased by the third day. Chest tube was removed yesterday. Chest x-ray remained stable this morning. Incision is clean and dry. He is tolerating a diet well. He does have some constipation though this is improving. Voiding without difficulties. He does reside alone so we have arranged for home health services at discharge. He does qualify by respiratory therapy home oxygen evaluation for 2 L nasal cannula which will be arranged prior to discharge. He will be scheduled to follow-up in my clinic in 1 week with a chest x-ray. At the time of discharge, pathology final report is pending. Physical Exam Chest: COMMONS NORMALS: normal inspection of the chest and normal palpation of entire chest wall OTHER: Thoracotomy incision is clean and dry. Chest tube site is clean and well approximated. Resp: COMMON NORMALS: normal respiratory effort, No retractions, No use of accessory muscles, clear to auscultation bilaterally (Slight decrease in breath sounds at the left base posteriorly) and percussion normal EFFORT & INSPECTION: Yes able to speak in complete sentences and Yes symmetric chest movement AUSCULTATION: clear to auscultation bilaterally (Slight decrease in breath sounds at the left base posteriorly) PERCUSSION: percussion normal Cardio: COMMON NORMALS: regular rate, regular rhythm, S1 normal heart sound present, No gallops present (Cardio), No murmurs present (Cardio) and No rub (Cardio) RATE: regular rate RHYTHM: regular rhythm HEART SOUNDS: S1 normal heart sound present Extremity: COMMON NORMALS: no clubbing, cyanosis or edema Urinary Catheter Management^: Roberson: Cath Placed During This Visit: yes, but has since been removed by the nurse Reason for Continuing Indwelling Catheter: Decision to DC Catheter Urinary Catheter Date of Insertion: 01/29/21 Urinary Catheter Time of Insertion: 10:50 Date Urinary Catheter Removed: 01/30/21 Time Urinary Catheter Discontinued: 18:17 Discharge Data Data Completed and Pending: Completed Studies During Hospitalization Category Date Time Status XR chest 1V candace ble [id number] Routine Exams 01/29/21 15:01 Completed XR chest 1V candace ble [id number] Routine Exams 01/31/21 06:00 Completed XR chest 1V candace ble [id number] Routine Exams 02/01/21 06:00 Completed XR chest 1V candace ble [id number] Routine Exams 02/02/21 06:00 Completed Pending at discharge Category Date Time Status Pathology: Surgic al [PTH] Routine Pth 01/29/21 13:36 Received Vitals: Last Vital Signs Temp 98.0 F 02/02/21 07:32 Pulse 69 02/02/21 07:32 Resp 18 02/02/21 08:02 BP 125/77 02/02/21 07:32 Pulse Ox 95 02/02/21 07:32 Discharge Plan Discharge Patient Disposition: Home Health Service Condition: Stable Prescriptions: New hydrocodone-acetaminophen 5-325 mg tablet 1 tab PO Q6H PRN (Reason: pain) Qty: 30 RF: 0 Continued simvastatin 20 mg tablet 40 mg PO BEDTIME RF: 0 fluoxetine [Prozac] 20 mg capsule 60 mg PO DAILY Qty: 90 RF: 2 quetiapine [Seroquel] 400 mg tablet 800 mg PO .HS Qty: 60 RF: 2 amlodipine 5 mg tablet 5 mg PO DAILY 30 Days Qty: 30 RF: 5 carvedilol 6.25 mg tablet 6.25 mg PO BID 30 Days Qty: 60 RF: 5 hydrochlorothiazide 25 mg Tablet 25 mg PO DAILY RF: 0 aspirin [Enteric Coated Aspirin] 81 mg tablet,delayed release (DR/EC) 81 mg PO DAILY 30 Days Qty: 30 RF: 5 multivitamin Tablet 1 tab PO DAILY RF: 0 omega-3 fatty acids Capsule 1,000 mg PO DAILY RF: 0 Discharge Orders: Discharge Order (Routine); Ordered 02/02/21 Ordered By: Giancarlo Covarrubias Other Ambulatory Orders: XR chest 1V [id number] (Routine) Timeframe: 1 Week Facility: [facility] - Location: Radiology [facility] Ordered By: Giancarlo Covarrubias DME: Oxygen (Order) Location: None Selected Ordered By: Giancarlo Covarrubias Referrals: Giancarlo Covarrubias MD [Physician] - 1 week (with cxr on day of visit) Discharge Diet: Usual diet Discharge Activity: Limit activity as instructed Patient Instructions: Hydrocodone/Acetaminophen (By mouth), Lung Lobectomy (DC), Using Oxygen at Home Activity Restrictions/Additional Instructions: No heavy lifting or pulling x4 weeks May shower daily and dry incision completely afterwards. No swimming or tub baths x2 weeks Use incentive spirometer frequently Report any increasing shortness of breath, fever, chills, or productive cough. Report any increasing redness, swelling, or drainage from the incision. Discharge Attestations Time Spent in Discharge Care*: less than 30 min Specific Discharge Activities: educating patient, discussing with pcp/other providers, discussing with counseling case manager/social workers/dc planners, documenting/other paperwork and evaluating patient/reviewing data Quality Metrics Clinical Quality Measures During this hospital stay, did patient experience: None Coding Level of Care Code Acute Chg FW DC note Diagnoses Status post lobectomy of lung Z90.2
[2021-02-02] MEDS: magnesium hydroxide 30 mL UDC 45 ML PO (12:55)
[2021-02-02] MEDS: enoxaparin 40 mg/0.4 mL Syringe SUBCUT (14:03)
[2021-02-02] MEDS: ketorolac 30 mg/mL INJ IVP (14:04)
== END 2021-02-02 15:19 | disposition home health service (06) | DRG 165 ==
LOC: OR 14:24 → ICU 14:24 → MEDSURG 02-01 17:30
PROVIDERS: Admitting Provider Thoracic Surgery (Cardiothoracic Vascular Surgery); PCP Emergency Medicine Emergency Medical Services; Visit Provider Thoracic Surgery (Cardiothoracic Vascular Surgery)
PROC: 0BTJ0ZZ Resection of Left Lower Lung Lobe, Open Approach (ICD-10-PCS; CPT 32480; principal; 2021-01-29 10:00)
DX: R91.1 Solitary pulmonary nodule (principal); F43.10 Post-traumatic stress disorder, unspecified; F31.9 Bipolar disorder, unspecified; I10 Essential (primary) hypertension; F17.210 Nicotine dependence, cigarettes, uncomplicated; Z79.82 Long term (current) use of aspirin
CPT/HCPCS: 36415; 51702; 62324; 71045; 80048; 80053; 81001; 85025; 85610; 86850; 86900; 86920; 87086; 88309; 90471; 90686; 93005; 96365; 96372; 96374; 96375; 97161; J0330; J1100; J1170; J1650; J1885; J2250; J2270; J2370; J2704; J2710; J2795; J3010; J3370; J3490; J7030; J7040; J7050

== ENCOUNTER 2021-02-09 07:30 | Outpatient (CLI) | payer OTHER, SELFPAY ==
--- NOTE | 2021-02-09 07:39 | XR_ITS ---
WS: [id number] CHEST, 1 view. 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 Row of surgical sutures persist over the mid LEFT thorax from prior surgery. No chest tube remaining. No pneumothorax. Improved atelectasis t hroughout the LEFT upper lobe. Mild pleural thickening or fluid at the LEFT lung base. Overall improv ed since the prior study. Cardiac size: Mildly enlarged cardiac silhouette. Mediastinum/Aorta: Normal mediastinum. No osseous abnormality seen. XR/XR chest 1V [id number] IMPRESSION: 1. Status post LEFT lower lobectomy. 2. Overall improved aeration throughout the remaining LEFT lung with less atel ectasis and improving very small LEFT pleural effusion.
== END 2021-02-09 07:31 | disposition home or self-care (01) ==
LOC: RAD 07:34
PROVIDERS: PCP Emergency Medicine Emergency Medical Services; Visit Provider Internal Medicine
DX: Z90.2 Acquired absence of lung [part of] (principal); J98.11 Atelectasis; J90 Pleural effusion, not elsewhere classified
CPT/HCPCS: 71045

== ENCOUNTER → 2021-02-21 10:22 | Outpatient (BNVA) | payer OTHER, SELFPAY | PROVIDERS: PCP Emergency Medicine Emergency Medical Services; Visit Provider Counselor Professional | DX: F33.2 Major depressive disorder, recurrent severe without psychotic features (principal); F31.9 Bipolar disorder, unspecified; F43.12 Post-traumatic stress disorder, chronic; F41.1 Generalized anxiety disorder | CPT/HCPCS: 90834 ==

== ENCOUNTER → 2021-03-09 08:25 | Outpatient (BNVA) | payer OTHER, SELFPAY | PROVIDERS: PCP Emergency Medicine Emergency Medical Services; Visit Provider Counselor Professional | DX: F31.9 Bipolar disorder, unspecified (principal); F33.2 Major depressive disorder, recurrent severe without psychotic features; F43.12 Post-traumatic stress disorder, chronic; F41.1 Generalized anxiety disorder | CPT/HCPCS: 90834 ==

== ENCOUNTER → 2021-03-30 08:07 | Outpatient (BNVA) | payer OTHER, SELFPAY | PROVIDERS: PCP Emergency Medicine Emergency Medical Services; Visit Provider Counselor Professional | DX: F31.9 Bipolar disorder, unspecified (principal); F33.2 Major depressive disorder, recurrent severe without psychotic features; F43.12 Post-traumatic stress disorder, chronic; F41.1 Generalized anxiety disorder | CPT/HCPCS: 90834 ==

== ENCOUNTER → 2021-04-06 12:31 | Outpatient (BNVA) | payer OTHER, SELFPAY | PROVIDERS: PCP Emergency Medicine Emergency Medical Services; Visit Provider Psychiatry & Neurology Psychiatry | DX: F31.9 Bipolar disorder, unspecified (principal); F43.10 Post-traumatic stress disorder, unspecified | CPT/HCPCS: 99214 ==

== ENCOUNTER → 2021-04-12 08:30 | Outpatient (BNVA) | payer OTHER, SELFPAY | PROVIDERS: PCP Emergency Medicine Emergency Medical Services; Visit Provider Counselor Professional | DX: F31.9 Bipolar disorder, unspecified (principal); F43.10 Post-traumatic stress disorder, unspecified | CPT/HCPCS: 90834 ==

== ENCOUNTER → 2021-04-16 08:18 | Outpatient (BNVA) | payer OTHER, SELFPAY | PROVIDERS: PCP Emergency Medicine Emergency Medical Services; Visit Provider Counselor Professional | DX: F31.9 Bipolar disorder, unspecified (principal); F43.10 Post-traumatic stress disorder, unspecified | CPT/HCPCS: 90834 ==

== ENCOUNTER → 2021-04-24 08:03 | Outpatient (BNVA) | payer OTHER, SELFPAY | PROVIDERS: PCP Emergency Medicine Emergency Medical Services; Visit Provider Counselor Professional | DX: F31.9 Bipolar disorder, unspecified (principal); F43.10 Post-traumatic stress disorder, unspecified | CPT/HCPCS: 90834 ==

== ENCOUNTER → 2021-05-03 07:50 | Outpatient (BNVA) | payer OTHER, SELFPAY | PROVIDERS: PCP Emergency Medicine Emergency Medical Services; Visit Provider Counselor Professional | DX: F31.9 Bipolar disorder, unspecified (principal); F43.10 Post-traumatic stress disorder, unspecified | CPT/HCPCS: 90834 ==

== ENCOUNTER → 2021-05-21 07:27 | Outpatient (BNVA) | payer OTHER, SELFPAY | PROVIDERS: PCP Emergency Medicine Emergency Medical Services; Visit Provider Counselor Professional | DX: F31.9 Bipolar disorder, unspecified (principal); F43.10 Post-traumatic stress disorder, unspecified | CPT/HCPCS: 90834 ==

== ENCOUNTER → 2021-05-22 10:04 | Outpatient (BNVA) | payer OTHER, SELFPAY | PROVIDERS: PCP Emergency Medicine Emergency Medical Services; Visit Provider Psychiatry & Neurology Psychiatry | DX: F31.9 Bipolar disorder, unspecified (principal); F43.10 Post-traumatic stress disorder, unspecified | CPT/HCPCS: 99214 ==

== ENCOUNTER → 2021-05-28 07:40 | Outpatient (BNVA) | payer OTHER, SELFPAY | PROVIDERS: PCP Emergency Medicine Emergency Medical Services; Visit Provider Counselor Professional | DX: F31.9 Bipolar disorder, unspecified (principal); F43.10 Post-traumatic stress disorder, unspecified | CPT/HCPCS: 90834 ==

== ENCOUNTER → 2021-06-06 07:19 | Outpatient (BNVA) | payer OTHER, SELFPAY | PROVIDERS: PCP Emergency Medicine Emergency Medical Services; Visit Provider Counselor Professional | DX: F31.9 Bipolar disorder, unspecified (principal); F43.10 Post-traumatic stress disorder, unspecified | CPT/HCPCS: 90834 ==

== ENCOUNTER → 2021-07-03 09:31 | Outpatient (BNVA) | payer OTHER, SELFPAY | PROVIDERS: PCP Emergency Medicine Emergency Medical Services; Visit Provider Psychiatry & Neurology Psychiatry | DX: F43.10 Post-traumatic stress disorder, unspecified (principal); F31.9 Bipolar disorder, unspecified | CPT/HCPCS: 99214 ==

== ENCOUNTER → 2021-07-23 07:52 | Outpatient (BNVA) | payer OTHER, SELFPAY | PROVIDERS: PCP Emergency Medicine Emergency Medical Services; Visit Provider Counselor Professional | DX: F43.10 Post-traumatic stress disorder, unspecified (principal); F31.9 Bipolar disorder, unspecified | CPT/HCPCS: 90834 ==

== ENCOUNTER → 2021-07-31 11:07 | Outpatient (BNVA) | payer OTHER, SELFPAY | PROVIDERS: PCP Emergency Medicine Emergency Medical Services; Visit Provider Psychiatry & Neurology Psychiatry | DX: F43.10 Post-traumatic stress disorder, unspecified (principal) | CPT/HCPCS: 99214 ==

== ENCOUNTER → 2021-08-06 07:29 | Outpatient (BNVA) | payer OTHER, SELFPAY | PROVIDERS: PCP Emergency Medicine Emergency Medical Services; Visit Provider Counselor Professional | DX: F43.10 Post-traumatic stress disorder, unspecified (principal) | CPT/HCPCS: 90834 ==

== ENCOUNTER → 2021-08-08 10:28 | Outpatient (BNVA) | payer OTHER, SELFPAY | PROVIDERS: PCP Emergency Medicine Emergency Medical Services; Visit Provider Surgery | DX: Z01.812 Encounter for preprocedural laboratory examination (principal); Z20.822 Contact with and (suspected) exposure to COVID-19 | CPT/HCPCS: 87635 ==

== ENCOUNTER 2021-08-13 09:57 | Outpatient (CLI) | payer OTHER, SELFPAY ==
--- NOTE | 2021-08-13 10:30 | FL_ITS ---
WS: [id number] FL barium swallow modifd 75336 REASON FOR EXAM: R13.10 - Dysphagia, unspecified FLUOROSCOPY TIME: 1.4 minutes FINDINGS: The swallowing of varying consistencies of barium was monitored and recorded fluoroscopically. A deta iled report of the swallowing will be rendered by the speech therapy department. Mid and distal esophageal motility or within normal limits. FL/FL barium swallow modifd 30819 IMPRESSION: Modified barium swallow as above.
== END 2021-08-13 09:58 | disposition home or self-care (01) ==
LOC: RAD 10:01
PROVIDERS: PCP Emergency Medicine Emergency Medical Services; Visit Provider Surgery
DX: R13.10 Dysphagia, unspecified (principal)
CPT/HCPCS: 74230; 92611

== ENCOUNTER 2021-08-15 09:31 | Day surgery (SDC) | payer OTHER, SELFPAY ==
--- NOTE | 2021-08-15 09:58 | ANES.PREANE2 ---
Pre-Anesthetic Assessment Pre-Anesthetic Assessment: Height/Weight: Height 1.92 m Weight 140.614 kg Preop Diagnosis: Left lower lobe lung mass; PET positive Proposed Procedure: Operation Date: 08/15/21 10:45 Proposed Procedures p EGD 46182 R13.10(Not Applicable) - Moe Torres MD Familial anesthetic complications: None Was Beta Gonzalo taken within 24 hours: Yes Was Clonidine taken within 24 hours: N/A Last intake: > 8 hrs Social: Social History: Tobacco and No alcohol Exam: Pre-Anes Outpt Exam: alert, oriented x 3, clear to auscultation bilaterally and regular rate & rhythm Airway: Cervical ROM: WNL MP: 2 Dentition: Full Pulmonary: Comments: Lobectomy - breathing ok now CV/HEM: CV/HEM: Angina (Stable) (not in months ), CAD and HTN Comments: Echo 2020 CONCLUSIONS Normal LV size with slightly diminished ejection fraction of 50%. Wall motion normalities as mentioned above. Mild-moderate mitral valve regurgitation. There is no pericardial effusion. There are no intracardiac masses. No previous study is available for comparison. Cath 2020 Conclusions 1. This is a 50-year-old white male with history of hypertension, dyslipidemia and a strong family history for premature atherosclerotic heart disease present with complaints of chest pain and shortness of breath. He had a myocardial perfusion imaging which revealed a small area of reversible defect in the anterior wall region, suggestive of ischemia in the distribution of the left anterior descending artery. In view of the patient's ongoing symptoms and multiple risk factors, in order to further evaluate his coronary status, a cardiac catheterization was recommended. Patient underwent left heart catheterization with left and right coronary angiogram and LV angiogram today. The findings are as follows.. 2. Left main artery and the left anterior descending artery were found to have mild disease, lesions ranging anywhere from 20 to 40%. No significant disease in the right coronary artery and the circumflex artery. Normal LV ejection fraction of 55%. LVEDP of 9 mmHg. GI: GI: GERD Metabolic: Metabolic: Hyperlipidemia Anesthetic Plan: ASA status: 3 Anesthesia: MAC Risk of > 500 ml blood loss (7ml/kg in children): No PFSH Anesthesia PFSH: Medical History (Updated 07/31/21 @ 14:45 by Jaimee Childers) Abnormal EKG Atypical chest pain Benign essential HTN Bipolar disorder Deviated septum Dyslipidemia Dysphagia GERD and gastritis and duodenitis.Patient will be started on medical management, no evidence of esophageal strictures or masses GERD (gastroesophageal reflux disease) Hypertension Laryngopharyngeal reflux Left lower lobe pulmonary nodule Psychiatric care PTSD (post-traumatic stress disorder) SOB (shortness of breath) Surgical History History of colonoscopy with polypectomy (~08/2019) Family History Father , had sudden cardiac at the age of 57 No problems noted. Brother No problems noted. Denies family history of Diabetes CAD (coronary artery disease) Clotting disorder Dementia Chronic kidney disease (CKD) Suicide Anesthesia complication Bleeding disorder Lung disease Cancer Stroke Social History Smoking and tobacco status: current every day smoker cigarettes Packs smoked per day: 0.5 Years cigarettes smoked: 35 Quit status (tobacco): has quit using tobacco Year quit tobacco: 2020 - 60 days ago Second hand smoke exposure: No Smoking risk assessment/counseling performed?: No Alcohol intake: former Lives independently: Yes Household members: none Marital status: History of recent travel: No Current gender identity: Male Data Anesthesia Cardiac Studies: No Data to Display
--- NOTE | 2021-08-15 10:25 | W.PM.OPSFHP ---
Same Day Surgery H&P Indication for Procedure/HPI DATE OF PROCEDURE: August 15, 2021 CHIEF COMPLAINT/INDICATIONFOR SURGICAL PROCEDURE: Difficulty in swallowing PREOP DIAGNOSIS: Dysphagia PLANNED PROCEDRUE: Operation Date: 08/15/21 10:45 Proposed Procedures p EGD 03799 R13.10(Not Applicable) - Moe Torres MD This is a pleasant 51 years old gentleman well-known to me from previous clinical encounter comes today complaining of difficulty in swallowing, patient was seen before in my practice and undergone diagnostic EGD back in January 05, 2020, and was found to have reflux esophagitis, gastritis and duodenitis. And before the endoscopy I did send the patient for a modified barium swallow back in January 2020 that did show; There did appear to be some retention of barium in the vallecula area. Per speech pathology recommendations that patient was trained and instructed in using an alternation technique while eating to decrease risk of food pooling in the valleculae. Patient was also provided information regarding slick diet, to assist with passage of food through the esophagus to the stomach. Back in October [address] scan of the chest that showed; 1. Irregular subpleural pulmonary nodule in the left lower lobe measuring1.5 x 1.7 x 1.0 CM. Neoplasm is not excluded. Recommend further evaluation with PET/CT 2. A few adjacent tiny satellite nodules in the left lower lobe. 3. Noncalcified 5 mm nodule in the super segment right lower lobe adjacent to the fissure. Recommend 6 month follow-up. 4. No mediastinal or hilar lymphadenopathy. 5. Diffuse fatty infiltration of the liver with low-attenuation lesion in the dome likely hepatic cyst measuring 1.7 CM. Subsequently the patient undergone a left thoracotomy with left lower lobectomy back in January 2021 And pathology did show Lung, left lower lobe , lobectomy: ?Calcified necrotizing granuloma, 2.2 cm in greatest dimension. ?Emphysematous changes. ?No malignancy identified. ?Special stains have been performed to rule out mycobacteria and fungus. Patient continues to complain of dysphagia particularly to solid food and has been consistent. Patient is referred back to me for further evaluation potential intervention. Interim history 08/15/2021 Patinet comes today for daignostic EGD MBS The swallowing of varying consistencies of barium was monitored and recorded fluoroscopically. A detailed report of the swallowing will be rendered by the speech therapy department. Mid and distal esophageal motility or within normal limits. ROS All systems have been reviwed negative as per HPI an dper problem list Medications/Allergies* Home Medications Medication Instructions Recorded Confirmed Type simvastatin 20 mg tablet 40 mg PO BEDTIME 12/30/19 08/13/21 History hydrochlorothiazide 25 mg PO DAILY 01/04/20 08/13/21 History multivitamin 1 tab PO DAILY 01/29/21 08/13/21 History omega-3 fatty acids 1,000 mg PO DAILY 01/29/21 08/13/21 History Allergies/Adverse Reactions Allergy/AdvReac Type Severity Reaction Status Date / Time azithromycin Allergy Severe Facial Verified 08/15/21 11:35 swelling cefdinir Allergy Severe Facial Verified 08/15/21 11:35 swelling Pertinent History/Comorbid Conditions* Medical History (Updated 07/31/21 @ 14:45 by Jaimee Childers) Abnormal EKG Atypical chest pain Benign essential HTN Bipolar disorder Deviated septum Dyslipidemia Dysphagia GERD and gastritis and duodenitis.Patient will be started on medical management, no evidence of esophageal strictures or masses GERD (gastroesophageal reflux disease) Hypertension Laryngopharyngeal reflux Left lower lobe pulmonary nodule Psychiatric care PTSD (post-traumatic stress disorder) SOB (shortness of breath) Surgical History (Updated 01/30/21 @ 06:40 by Giancarlo Covarrubias MD) History of colonoscopy with polypectomy (~08/2019) Family History (Updated 11/09/20 @ 10:33 by Sari Flores RN) Brother Father, had sudden cardiac at the age of 57 Denies family history of Diabetes CAD (coronary artery disease) Clotting disorder Dementia Chronic kidney disease (CKD) Suicide Anesthesia complication Bleeding disorder Lung disease Cancer Stroke Social History Smoking and tobacco status: current every day smoker cigarettes Packs smoked per day: 0.5 Years cigarettes smoked: 35 Quit status (tobacco): has quit using tobacco Year quit tobacco: 2020 - 60 days ago Second hand smoke exposure: No Smoking risk assessment/counseling performed?: No Alcohol intake: former Lives independently: Yes Household members: none Marital status: History of recent travel: No Current gender identity: Male Pertinent Exam Findings alert, oriented x 3, clear to auscultation bilaterally, regular rate & rhythm and procedure specific exam findings (Abdomen exam is soft Nt ND ) Recommendations Surgery/Procedure today (EGD w possible biopsy ) Coding Level of Care Code Acute Director Of Annual Giving for Chg Fwd
[2021-08-15 11:10] VITALS: BP 136/91; PULSE 64; RESP 18; TEMP 36.3; O2SAT 96
[2021-08-15] MEDS: sodium chloride 0.9% 1,000 ML 30 ML IV (11:31)
[2021-08-15 12:02] VITALS: BP 110/78; PULSE 65; RESP 18; TEMP 36.1; O2SAT 94
[2021-08-15 12:15] VITALS: BP 94/68; PULSE 57; RESP 16; O2SAT 91
--- NOTE | 2021-08-15 15:02 | ANE.PACU2 ---
Inpatient post-anesthesia follow up: Airway intact: Yes Vital signs: Temperature 97 F Pulse Rate 57 Respiratory Rate 16 Blood Pressure 94/68 Pulse Oximetry 91 Oxygen Delivery Me thod Room Air Oxygen Flow Rate Fraction of Inspir ed Oxygen Hydration adequate: Yes Nausea and vomiting: No Pain level: 2 Mental status: Baseline
[2021-08-16 13:40] LABS: H. Pylori / CLO Test Negative
== END 2021-08-15 12:35 | disposition home or self-care (01) ==
PROVIDERS: PCP Emergency Medicine Emergency Medical Services; Visit Provider Surgery
PROC: 0DJ08ZZ Inspection of Upper Intestinal Tract, Via Natural or Artificial Opening Endoscopic (ICD-10-PCS; CPT 43235; principal; 2021-08-15 10:45)
DX: R13.10 Dysphagia, unspecified (principal); K21.00 Gastro-esophageal reflux disease with esophagitis, without bleeding; K29.70 Gastritis, unspecified, without bleeding; K29.80 Duodenitis without bleeding; I10 Essential (primary) hypertension; E78.5 Hyperlipidemia, unspecified; F17.210 Nicotine dependence, cigarettes, uncomplicated; Z90.2 Acquired absence of lung [part of]; I25.10 Atherosclerotic heart disease of native coronary artery without angina pectoris
CPT/HCPCS: 43239; 87077; 88305; 96360; J2704; J7030

== ENCOUNTER → 2021-08-17 06:40 | Outpatient (BNVA) | payer OTHER, SELFPAY | PROVIDERS: PCP Emergency Medicine Emergency Medical Services; Visit Provider Counselor Professional | DX: F43.10 Post-traumatic stress disorder, unspecified (principal); F31.9 Bipolar disorder, unspecified | CPT/HCPCS: 90834 ==

== ENCOUNTER → 2021-10-19 09:10 | Outpatient (BNVA) | payer OTHER, SELFPAY | PROVIDERS: PCP Emergency Medicine Emergency Medical Services; Visit Provider Psychiatry & Neurology Psychiatry | DX: F31.9 Bipolar disorder, unspecified (principal); F43.10 Post-traumatic stress disorder, unspecified | CPT/HCPCS: 99214 ==

== ENCOUNTER → 2022-01-14 12:08 | Outpatient (BNVA) | payer OTHER, SELFPAY | PROVIDERS: PCP Emergency Medicine Emergency Medical Services; Visit Provider Psychiatry & Neurology Psychiatry | DX: F31.9 Bipolar disorder, unspecified (principal); F43.10 Post-traumatic stress disorder, unspecified | CPT/HCPCS: 99214 ==

== ENCOUNTER → 2022-02-25 10:30 | Outpatient (BNVA) | payer OTHER, SELFPAY | PROVIDERS: PCP Emergency Medicine Emergency Medical Services; Visit Provider Psychiatry & Neurology Psychiatry | DX: F43.10 Post-traumatic stress disorder, unspecified (principal); F31.9 Bipolar disorder, unspecified | CPT/HCPCS: 99214 ==